=== PATIENT | male | born 1955 | race Caucasian/White ===

== ENCOUNTER 2020-03-04 19:37 | Emergency (ER) | payer OTHER, SELFPAY ==
--- NOTE | 2020-03-04 19:46 | ED.GENADULT ---
HPI - General Adult General Chief complaint: Abdominal Pain Stated complaint: abd pain Time Seen by Provider: 03/04/20 19:46 Source: patient and family Mode of arrival: ambulatory Limitations: no limitations History of Present Illness HPI narrative: 64-year-old male patient presents to the [facility] with complaints of abdominal pain that started about 1 AM last night. Patient states he had some violent vomiting last night. Patient states he also had a little bit of diarrhea. Patient denies knowing what color the vomit was. Patient states that all day today the pain is gotten worse and states that last time he ate was about 2 PM today trying to eat [place]qu[place]. Patient states he has not vomited up but just overall does not feel well. Denies any chest pain or shortness of breath. Denies any fever but does state he has some chills and is diaphoretic at this time. Related Data Home Medications Medication Instructions Recorded Confirmed No Home Medications 03/04/20 03/04/20 Allergies Allergy/AdvReac Type Severity Reaction Status Date / Time No Known Allergies Allergy Mild Verified 04/14/10 10:49 Review of Systems Review of Systems: Narrative: CONSTITUTIONAL: Denies fever, positive chills, and sweats. EYES: Denies visual changes, redness, or discharge. ENT: Denies rhinorrhea, congestion, sore throat, or otalgia. CARDIOVASCULAR: Denies chest pain, palpitations, or edema. RESPIRATORY: Denies cough or dyspnea. GASTROINTESTINAL: Positive lower abdominal pain, nausea, vomiting, and diarrhea. GENITOURINARY: Denies dysuria or hematuria. SKIN: Denies rash or itching. MUSCULOSKELETAL: Denies back pain, joint pain, or myalgia. NEUROLOGIC: Denies headache, numbness, or weakness. PSYCHIATRIC: Denies anxiety or depression. [facility] Past Medical History Medical History (Updated 03/04/20 @ 19:54 by GISSELL Marte) Borderline hypertension Kidney stones Surgical History Surgical History (Updated 03/04/20 @ 19:49 by GISSELL Marte) H/O shoulder surgery Family History Family History (Updated 10/17/16 @ 11:38 by DOCTOR UNKNOWN) Other Cerebrovascular accident Diabetes mellitus Social History Social History (Updated 03/04/20 @ 19:50 by GISSELL Marte) Smoking status: Never smoker Alcohol intake: current Alcohol use details: Patient states he drinks 4 to 5 days a week and approximately 4-5 beers a day Gender identity (if verbalized by the patient): Male Comments At the time of my signature I agree with nursing past medical history, surgical, social, and family history. There is no relevant family history pertinent to the presenting complaint. Exam Narrative: Exam Narrative: GENERAL: ill-appearing, well-nourished, patient is guarding his abdomen and does appear slightly pale and diaphoretic HEAD: Normocephalic, atraumatic. EYES: PERRLA and EOMI. ENT: Nares clear, no rhinorrhea or epistaxis. Mucous membranes moist. NECK: Supple. No lymphadenopathy CHEST: Clear to auscultation. No respiratory distress. HEART: Regular rate and rhythm. No murmur heard. Normal peripheral pulses. ABDOMEN: Patient's abdomen does look distended.. guarding and rebound tenderness, no rigid. Patient having severe pain to the left lower quadrant on palpation no pulsatilla masses. Bowel sounds present in left upper and left lower quadrants. No active bowel sounds noted to right upper or right lower. No organomegaly. Negative Alicea?s sign. No periumbicial tenderness. No Supra public tenderness or distension. Good femoral pulses bilaterally. No hernia noted. No scars or surface trauma. EXTREMITIES: Normal range of motion. No edema. SKIN: Warm, dry, no rash. NEURO: No focal deficits. Alert and oriented x3. Course Vital Signs Vital signs: Vital signs reviewed Transfer Transfered to: [facility] Transportation: Other (Private vehicle with ) Transfer rationale: Abdominal pain Accepting physician: Dr. Lutz Transfer
[2020-03-04 19:48] VITALS: BP 114/75; PULSE 94; RESP 24; TEMP 36.9; O2SAT 99
--- NOTE | 2020-03-04 19:48 | PC.NURSE ---
Peggy WATER SANDER spoke with DR Lutz and nurse report given to Janes CAMARILLO
--- NOTE | 2020-03-04 19:51 | ECG_ITS ---
Measurements Intervals [place] Rate: 65 P: 65 CA: 185 QRS: -54 QRSD: 105 T: 79 QT: 402 QTc: 420 Interpretive Statements SINUS RHYTHM INCOMPLETE RIGHT BUNDLE BRANCH BLOCK LEFT ANTERIOR FASCICULAR BLOCK BORDERLINE T WAVE ABNORMALITY- HIGH LATERAL LEADS BASELINE WANDER- II, III, AVR, AVL, AVF, V1-V6 ABNORMAL ECG Electronically Signed On 03-05-2020 7:56:38 PSYCH RN by Sacha Jones D.O.
== END 2020-03-04 19:53 | disposition short-term general hospital (02) ==
LOC: EXPTROY 19:42
PROVIDERS: Emergency Provider Nurse Practitioner Family
DX: R10.32 Left lower quadrant pain (principal); Z87.442 Personal history of urinary calculi; R03.0 Elevated blood-pressure reading, without diagnosis of hypertension; I45.2 Bifascicular block; R94.31 Abnormal electrocardiogram [ECG] [EKG]
CPT/HCPCS: 93005; 99213; G0463

== ENCOUNTER 2020-03-04 20:02 | Inpatient (IN) | payer OTHER, SELFPAY ==
--- NOTE | ~2020-03-04 | XR_ITS ---
Upper GI/small bowel series INDICATION: Small bowel obstruction TECHNIQUE: Serial plain films and fluoroscopic spot films are performed following oral demonstration of water-soluble contrast. COMPARISON: CT dated 05/05/2019 FINDINGS: Contrast was followed sequentially through the small bowel. The mucosal pattern is unremar kable. There is diffusely dilated small bowel with delayed transit of contrast through the colon. Tra nsit time to the colon is approximately 9 hours. The distal small bowel is relatively decompressed, a lthough no transition site is identified. There is a duodenal diverticulum in the right lower abdomen . IMPRESSION: 1: Small bowel obstruction.. Reviewed, dictated and finalized at location A. [employer]
--- NOTE | ~2020-03-04 | XR_ITS ---
EXAMINATION: XR abdomen obstructive series EXAM DATE: 03/07/2020 07:48 INDICATION: Follow-up on ileus versus partial small-bowel obstruction TECHNIQUE: Frontal upright projection of the upper abdomen, frontal projection of the lower abdomen f or interpretation. Comparison is made to prior examination from 03/06/2020. FINDINGS: There is small amount of contrast within the colon, with interval passage of all of the con trast in the stomach and small bowel seen on yesterday's exam. Contrast within a normal appendix. Sev eral loops of moderately distended air-filled mid abdominal small bowel, improvement compared to yest erday. There is no organomegaly. There are mild bony degenerative changes. IMPRESSION: Several loops of moderately distended mid small bowel, interval improvement. Ileus or par tial obstruction. Reviewed, dictated and finalized at location A. NIB GRINDER IMPRESSION: Several loops of moderately distended mid small bowel, interval imp rovement. Ileus or partial obstruction.
--- NOTE | ~2020-03-04 | CT_ITS ---
EXAMINATION: CT abdomen pelvis wo con DATE: 03/04/2020 21:28 INDICATION: Left upper quadrant pain. Diverticulitis. TECHNIQUE: Computed tomography (CT) of the abdomen and pelvis was performed without intravenous contr ast. The dose-length product was 594.07 mGy-cm. Automated exposure control and iterative reconstructi on technique were employed. COMPARISON: None. FINDINGS: There is atelectasis of the right middle and lower lobe. Heart size normal. No significant pleural or pericardial effusion. The liver, spleen, pancreas, adrenal glands gallbladder is present. There appears to be bowel malrotation. There is dilated small bowel with air-fluid levels the head du e to a dominant distal small bowel are relatively decompressed. Cannot exclude closed loop obstructio n. Other considerations include adynamic ileus and enteritis. There is mild mesenteric edema. Colonic diverticulosis without evidence for diverticulitis. There is atherosclerosis. No evidence for aneurysm. No hydronephrosis. IMPRESSION: 1. Dilated small bowel with air-fluid levels. The proximal and distal small bowel are decompressed, a lthough exact site of transition is not identified. These findings are suspicious for closed loop obs truction. Possible bowel malrotation. Reviewed, dictated and finalized at location A. GER AUDIT IMPRESSION: 1. Dilated small bowel with air-fluid levels. The proximal and distal small bow el are decompressed, although exact site of transition is not identified. These findings are suspicious for closed loop obstruction. Possible bowel malrotatio n.
--- NOTE | ~2020-03-04 | XR_ITS ---
EXAMINATION: XR abdomen obstructive series EXAM DATE: 03/06/2020 07:04 INDICATION: Obstruction versus ileus. TECHNIQUE: Frontal upright projection of the upper abdomen, frontal projection of the lower abdomen f or interpretation. Correlation was made with water-soluble upper GI examination from yesterday. FINDINGS: There are multiple loops of moderately distended ileum and jejunum. The stomach is also di stended with contrast, fluid. There is also contrast throughout the colon. No discrete transition poi nt identified. Scattered colonic diverticulosis. There is linear right basilar atelectasis. There ar e mild bony degenerative changes. IMPRESSION: Contrast from stomach to rectum with persistent moderately distended stomach and small joaquin wel, delayed transit time on yesterday's small bowel exam. Ileus or partial obstruction. Reviewed, dictated and finalized at location A. [employer] IMPRESSION: Contrast from stomach to rectum with persistent moderately distende d stomach and small bowel, delayed transit time on yesterday's small bowel exam . Ileus or partial obstruction.
[2020-03-04 20:07] VITALS: BP 189/89; PULSE 68; RESP 24; TEMP 36.7; O2SAT 95
[2020-03-04 20:18] LABS: Basophils Percent Auto 0.2 % (0.2-1.2); Eosinophils Percent Auto 0.3 % (0-4.4); Hematocrit 46.5 % (42.0-52.0); Hemoglobin 16.3 g/dL (14.0-18.0); Immature Granulocyte Absolute 0.06 K/mm3 (0.00-0.031); Immature Granulocyte Percent A 0.4 % (0-0.5); Lymphocytes Absolute Auto 1.67 K/mm3 (0.9-3.2); Lymphocytes Percent Auto 11.5 % (18.3-44.2); Mean Corpuscular HGB Conc 35.1 g/dl (32-36); Mean Corpuscular Hemoglobin 31.8 pg (26-34); Mean Corpuscular Volume 90.6 fl (80-100); Mean Platelet Volume 9.6 fl (7.4-10.4); Monocytes Absolute Auto 0.7 K/mm3 (0.1-0.6); Monocytes Percent Auto 4.8 % (2.6-8.5); Neutrophils Percent Auto 82.8 % (45.5-73.1); Platelet Count Result 263 k/mm3 (150-375); Red Blood Count 5.13 M/mm3 (4.6-6.20); Red Cell Distribution Width 13.2 % (11.5-14.5); White Blood Count 14.5 K/mm3 (4.5-10.0)
--- NOTE | 2020-03-04 20:22 | ED.ABDPAIN ---
HPI - Abdominal Pain General Chief Complaint: Abdominal Pain Stated Complaint: abd pain Time Seen by Provider: 03/04/20 20:04 Source: patient, family and old records reviewed Mode of arrival: ambulatory Limitations: no limitations History of Present Illness HPI narrative: 64-year-old male Presents for evaluation of lower abdominal pain which began shortly after midnight Patient notes that he was awakened by pain in his lower abdomen mainly on the left side and subsequently vomited multiple times over the next 10 to 15 minutes No more vomiting but he is continued to have pain which waxes and wanes and is tended to get worse He had one loose-reginald stool but it was dark and he is not sure whether it was melanotic or bloody or just normal He has not had any fevers No pain or burning with urination and no blood in his urine No other abdominal operations He went to urgent care and was sent here Related Data Home Medications Medication Instructions Recorded Confirmed No Home Medications 03/04/20 03/04/20 Allergies Allergy/AdvReac Type Severity Reaction Status Date / Time No Known Allergies Allergy Mild Verified 03/04/20 20:10 Review of Systems Review of Systems: All systems reviewed & are unremarkable except as noted in HPI and below Constitutional: Constitutional: Denies chills, Denies fatigue, Denies fever(s), Denies headache(s) and Denies weakness Eyes: Eyes: Reports no additional eye complaints and Denies change in vision ENT: Denies headache(s), Denies epistaxis, Denies nasal congestion and Denies sore throat Cardiovascular: Cardiovascular: Denies chest pain, Denies leg edema, Denies palpitations and Denies dyspnea Respiratory: Respiratory: Denies cough, Denies dyspnea and Denies wheezing Gastrointestinal: Gastrointestinal: Reports as per HPI and Reports no additional gastrointestinal complaints Genitourinary: Genitourinary: Denies hematuria, Denies dysuria and Denies urinary frequency Musculoskeletal: Musculoskeletal: Denies deformity, Denies arthralgias, Denies joint swelling, Denies muscle weakness and Denies numbness Integumentary/Breasts: Skin/Breast: Denies rash and Denies wounds Neurologic: Denies headache(s), Denies focal weakness, Denies numbness and Denies weakness Psychiatric: Psychiatric: Reports no additional psychiatric complaints Endocrine: Endocrine: Denies fatigue and Denies palpitations Hematologic/Lymphatic: Hematologic/Lymphatic: Denies easy bleeding and Denies easy bruising Allergic/Immunologic: Allergic/Immunologic: Denies wheezing PMFSH Past Medical History Medical History (Updated 03/04/20 @ 22:54 by Chris Chadwick MD) Borderline hypertension Kidney stones Surgical History Surgical History (Updated 03/04/20 @ 19:49 by GISSELL Marte) H/O shoulder surgery Family History Family History (Updated 10/17/16 @ 11:38 by DOCTOR UNKNOWN) Other Cerebrovascular accident Diabetes mellitus Social History Social History (Updated 03/04/20 @ 19:50 by GISSELL Marte) Smoking status: Never smoker Alcohol intake: current Gender identity (if verbalized by the patient): Male Exam Const: General: no acute distress, well developed and awake Nutritional Appearance: well nourished Orientation/consciousness: patient oriented x3 (alert) Limitations: no limitations HENMT: Head: normocephalic and atraumatic Ears: external ears normal General nose exam: No nasal discharge present and no epistaxis Face and sinus: face symmetric Eyes: Conjunctivae: conjunctivae normal Sclera: sclerae normal EOM: EOMs intact bilaterally Neck: Neck: normal visual inspection, supple and no JVD Chest: Chest palpation & inspection: deferred Resp: Effort & Inspection: normal respiratory effort Auscultation: clear to auscultation bilaterally, no rales, no rhonchi, no wheezes and other (BS =) Cardio: Rate: regular rate Rhythm: regular rhythm Heart sounds: no ga
[2020-03-04] MEDS: KETOROLAC 15 MG/ML VIAL (*BKC) IV PUSH (20:26)
[2020-03-04 20:29] LABS: Alanine Aminotransferase 39 U/L (4-50); Albumin Level 4.2 g/dL (3.5-5.1); Alkaline Phosphatase 97 U/L (38-126); Anion Gap 9 mmol/L (8-16); Aspartate Amino Transferase 41 U/L (17-59); Bilirubin,Total 1.5 mg/dL (0.2-1.3); Blood Urea Nitrogen 16 mg/dL (9-20); Calcium 9.1 mg/dL (8.4-10.2); Carbon Dioxide 24 mmol/L (22-30); Chloride 101 mmol/L (98-107); Estimated CRCL calculation 70 ml/min; Estimated Glomerular Filt Rate > 60; Glucose 164 mg/dL (75-110); Lipase 37 U/L (23-300); Potassium 3.7 mmol/L (3.4-5.0); Sodium 134 mmol/L (137-145)
[2020-03-04 20:51] LABS: Add Urine Microscopic? YES; Appearance Urine Clear (Clear); Bilirubin Urine Negative (Negative); Blood Urine Negative (Negative); Color Urine Yellow (Yellow); Glucose Urine UA Negative (Negative); Ketones Urine Trace mg/dL (Negative); Leukocyte Esterase Ur Negative LEU/UL (Negative); Mucus Urine Rare /lpf; Nitrate Urine Negative (Negative); Protein Urine 1+ mg/dL (Negative); Specific Grav Ur 1.025 (1.001-1.035); Squamous Epithelial Cell Urine Few /hpf (Few)
[2020-03-04 22:39] VITALS: BP 137/89; PULSE 88; RESP 16; O2SAT 98
[2020-03-04] MEDS: LACTATED RINGERS 1,000 ML 150 ML IV CONT (23:29)
--- NOTE | 2020-03-04 23:30 | ADMGEN ---
This patient, Willis Davis, was admitted to Medical Room 251-01. Patient/family oriented to hospital policies and general routines including ID bracelet, bed and alarms, visiting hours, pain management, procedures, bathroom and other care routines, personal items, smoking policy, room service/diet, and visiting hours. Information on how to activate the Rapid Response Team has been discussed. Patient/Family are encouraged to report perceived risks to care and to ask questions if they do not understand what they are told or what they should do.
[2020-03-04 23:37] VITALS: BP 141/81; PULSE 67; RESP 18; TEMP 36.6; O2SAT 97; BMI 26.2
[2020-03-04 23:39] VITALS: BP 142/101; PULSE 88; RESP 16; TEMP 36.7; O2SAT 98
[2020-03-04 23:41] VITALS: BP 142/101; PULSE 88; RESP 16; TEMP 36.7; O2SAT 98
--- NOTE | 2020-03-04 23:41 | PM.IMHP ---
H&P: HPI History of Present Illness Date/Time: 03/04/20 23:41 Chief Complaint: Abdominal pain Narrative: This is a 64 year old male with known chronic HTN and Hyperlipidemia who doesn't take any home medications and presented to the hospital with a complaint of generalized abdominal discomfort that woke him from sleep this morning around 1 am. He ate a Big Mac around 7 pm and around 1 am he woke up feeling nauseated with diffuse abdominal pain. He moved several times and had one loose stool. Today the patient continued to have abdominal pain but did eat a chicken pot pie and was able to keep that down. He denies any significant abdominal distention, fevers, chills, cough, shortness of breath, chest pain, dysuria, hematuria, or rectal bleeding. He has no previous history of bowel obstructions or abdominal surgeries. Tonight in the ER CT abd/pelvis demonstrated dilated small bowel with air-fluid levels. The proximal and distal small bowel are decompressed, although exact site of transition is not identified. These findings are suspicious for closed loop obstruction. Possible bowel malrotation. General Surgery has been consulted by ER provider. Review of Systems Review of Systems: All systems reviewed & are unremarkable except as noted in HPI and below PMFSH Past Medical History Medical History Borderline hypertension H/O: HTN (hypertension) Hyperlipidemia Kidney stones Surgical History Surgical History H/O shoulder surgery Family History Family History Mother Cerebrovascular accident Diabetes mellitus Social History Social History Smoking status: Never smoker Alcohol intake: current Drinks per week: 12 Substance use: never Gender identity (if verbalized by the patient): Male Spiritual care concerns: No Meds Home Medications and Allergies Home Medications Medication Instructions Recorded Confirmed Type amlodipine 5 mg PO DAILY 03/04/20 03/04/20 History rosuvastatin 10 mg PO DAILY 03/04/20 03/04/20 History Allergies Allergy/AdvReac Type Severity Reaction Status Date / Time No Known Allergies Allergy Mild Verified 03/04/20 20:10 Vital Signs Vital Signs - 24 hr 03/04/20 20:07 03/04/20 22:39 03/04/20 23:37 Temperature 36.7 C 36.6 C Pulse Rate 68 88 67 Respiratory Rate 24 H 16 18 Blood Pressure 189/89 H 137/89 141/81 H Pulse Oximetry 95 98 97 03/04/20 23:39 Temperature 36.7 C Pulse Rate 88 Respiratory Rate 16 Blood Pressure 142/101 H Pulse Oximetry 98 Exam Const: General: cooperative, no acute distress, alert and awake Nutritional Appearance: well nourished Orientation/consciousness: patient oriented x3 HENMT: Head: normal to inspection General nose exam: Normal external nose present Face and sinus: normal facial exam Mouth: Yes Normal oral and palatal mucosa present and Yes oropharynx normal Eyes: Pupils: Equal, round and reactive pupils present EOM: EOMs intact bilaterally Neck: Neck: supple and no JVD Thyroid: thyroid normal Lymphatic: lymphadenopathy not noted Resp: Effort & Inspection: normal respiratory effort Auscultation: clear to auscultation bilaterally Cardio: Rate: regular rate Rhythm: regular rhythm Heart sounds: no murmurs GI: Inspection: normal to inspection and non-distended GI Palp: Yes abdominal tenderness (mild diffuse tenderness w/ palpation+ ), No Guarding due to palpation present (GI) and No Rigid due to palpation Auscultation: Hypoactive bowel sounds present Rectal Exam: deferred Skin: General skin exam: normal color and no rashes or lesions noted Neuro: General: patient oriented x3 Cranial nerves: Yes CN's II-XII intact bilaterally and Yes Equal, round and reactive pupils present Speech: normal speech Motor ex
[2020-03-05] MEDS: LACTATED RINGERS 1,000 ML 150 ML IV CONT ×3 (05:56→20:04)
[2020-03-05 06:00] VITALS: BP 119/72; PULSE 63; RESP 16; TEMP 36.2; O2SAT 99
[2020-03-05 06:44] LABS: Eosinophils Absolute Auto 0.1 K/mm3 (0-0.3); Hematocrit 41.7 % (42.0-52.0); Hemoglobin 14.2 g/dL (14.0-18.0); Immature Granulocyte Absolute 0.02 K/mm3 (0.00-0.031); Immature Granulocyte Percent A 0.2 % (0-0.5); Lymphocytes Absolute Auto 1.73 K/mm3 (0.9-3.2); Lymphocytes Percent Auto 19.2 % (18.3-44.2); Mean Corpuscular HGB Conc 34.1 g/dl (32-36); Mean Corpuscular Hemoglobin 30.9 pg (26-34); Mean Corpuscular Volume 90.8 fl (80-100); Mean Platelet Volume 10.2 fl (7.4-10.4); Monocytes Absolute Auto 0.5 K/mm3 (0.1-0.6); Neutrophils Absolute Auto 6.7 K/mm3 (1.3-6.7); Neutrophils Percent Auto 74.6 % (45.5-73.1); Platelet Count Result 232 k/mm3 (150-375); Red Blood Count 4.59 M/mm3 (4.6-6.20)
[2020-03-05 07:01] LABS: Alanine Aminotransferase 29 U/L (4-50); Albumin Level 3.4 g/dL (3.5-5.1); Alkaline Phosphatase 64 U/L (38-126); Anion Gap 2 mmol/L (8-16); Aspartate Amino Transferase 27 U/L (17-59); Bilirubin,Total 1.2 mg/dL (0.2-1.3); Blood Urea Nitrogen 17 mg/dL (9-20); Calcium 8.3 mg/dL (8.4-10.2); Carbon Dioxide 29 mmol/L (22-30); Chloride 103 mmol/L (98-107); Estimated CRCL calculation 77 ml/min; Estimated Glomerular Filt Rate > 60; Glucose 103 mg/dL (75-110); Potassium 3.8 mmol/L (3.4-5.0); Sodium 134 mmol/L (137-145)
[2020-03-05 07:56] LABS: Hematocrit 41.2 % (42.0-52.0); Hemoglobin 14.3 g/dL (14.0-18.0); Mean Corpuscular HGB Conc 34.7 g/dl (32-36); Mean Corpuscular Hemoglobin 31.8 pg (26-34); Mean Corpuscular Volume 91.8 fl (80-100); Mean Platelet Volume 9.6 fl (7.4-10.4); Platelet Count Result 220 k/mm3 (150-375); Red Blood Count 4.49 M/mm3 (4.6-6.20); Red Cell Distribution Width 13.2 % (11.5-14.5); White Blood Count 8.9 K/mm3 (4.5-10.0)
[2020-03-05 08:12] LABS: Anion Gap 4 mmol/L (8-16); Blood Urea Nitrogen 16 mg/dL (9-20); Calcium 8.1 mg/dL (8.4-10.2); Carbon Dioxide 29 mmol/L (22-30); Chloride 102 mmol/L (98-107); Estimated CRCL calculation 70 ml/min; Estimated Glomerular Filt Rate > 60; Glucose 107 mg/dL (75-110); Potassium 3.8 mmol/L (3.4-5.0); Sodium 135 mmol/L (137-145)
[2020-03-05] MEDS: FAMOTIDINE 20 MG/2 ML VIAL IV PUSH ×2 (10:25→20:04)
--- NOTE | 2020-03-05 10:35 | PM.CNGS ---
Assessment and Plan Assessment and plan (1) Small bowel obstruction: Code(s): K56.609 - Unspecified intestinal obstruction, unspecified as to partial versus complete obstruction Status: Acute Assessment and Plan: CT scan of the abdomen and pelvis suggests a possibility of a closed-loop small bowel obstruction with findings of dilated small bowel with air-fluid levels and no exact transition point identified. The patient has nearly complete resolution of his symptoms after Toradol given in the ER. He has flatus today and had diarrhea prior to admission. His abdominal exam is unremarkable. I discussed the patient's case and plan of care with Dr. Barrera. After evaluating the patient, his clinical picture does not correlate with a small bowel obstruction. This seems more likely to be gastroenteritis. We will obtain a Gastrografin small bowel follow-through this morning to further assess for a small bowel obstruction. If the contrast reaches the colon, then we would recommend advancing his diet and treating him for gastroenteritis. We will keep him NPO and on IV fluids while awaiting the results of the gastrografin study. Thank you for allowing us to see the patient in consultation and we will continue to follow along with you. (2) Leukocytosis: Qualifiers: Leukocytosis type: unspecified Qualified Code(s): D72.829 - Elevated white blood cell count, unspecified Code(s): D72.829 - Elevated white blood cell count, unspecified Status: Acute Assessment and Plan: On admission his WBC count was 14,500 and has come down to normal today. Monitor labs. (3) H/O: HTN (hypertension): Code(s): Z86.79 - Personal history of other diseases of the circulatory system Status: Chronic Assessment and Plan: Stable. Management per Hospitalist. (4) Hyperlipidemia: Qualifiers: Hyperlipidemia type: unspecified Qualified Code(s): E78.5 - Hyperlipidemia, unspecified Code(s): E78.5 - Hyperlipidemia, unspecified Status: Chronic History of Present Illness Consult details Consult date: 03/05/20 Reason for consult: other (Small bowel obstruction) Requesting physician: Chris Chadwick MD Narrative: This is a 64-year-old male with a history of hypertension and hyperlipidemia, who presented to the emergency department with complaints of abdominal pain, nausea, and vomiting. The patient reports that 2 days ago he had put his dog to sleep and had not eaten throughout the day. He then went to a bar and had 3 alcoholic drinks. Then, for dinner he did eat a Big Mac from [employer] and half of a subway sandwich. He went to bed that night feeling poorly, but no specific complaints. He reports then waking up around 1:00 a.m. with more severe symptoms of cramping mid upper abdominal pain with nausea and multiple episodes of vomiting. Denies any hematemesis. He also had a small formed bowel movement and then a large amount of diarrhea. His abdominal pain continued into the next day, and he eventually presented to the emergency department yesterday evening for evaluation. CT scan of the abdomen and pelvis in the ER showed dilated small bowel with air-fluid levels with the proximal and distal small bowel decompressed and no exact transition point identified, suspicious for closed loop obstruction. Other considerations include adynamic ileus and enteritis. The patient was given IV Toradol and had near complete resolution of his abdominal pain. He was admitted to the hospitalist service and our service was consulted for the possible small-bowel obstruction. The patient was made NPO and started on IV fluids. He is now being seen on the medical floor. The patient reports only very mild cramping abdominal pain in the mid upper abdomen. He denies any further nausea or vomiting. Reports his bloating has improved significantly. Reports flatus today. No other complaints at this time. Denies any history of a
--- NOTE | 2020-03-05 11:22 | PM.PNGS ---
Progress Note: A&P Assessment and Plan (1) Epigastric pain: Code(s): R10.13 - Epigastric pain Status: Acute Assessment and Plan: improved significantly after single dose of 15 mg Toradol in the ER. No vomiting since then. Still some mild pain but much improved and patient having bowel movements. Clinically appears to be more of a gastroenteritis but will get upper GI small-bowel follow-through today to evaluate for obstruction. If no obstruction, patient can eat and possibly go home later today. If signs of obstruction or ileus consider NG tube and continue to stay in the hospital. Subjective Subjective Date/Time Seen: 03/05/20 11:22 Patient reports: feels better, pain is less, flatus, bowel movement and afebrile Interval history: 64-year-old man started having some epigastric abdominal pain after eating big Mac as well as part of the subway sandwich. He had had a few rum and cokes prior to this. Awakened 1:00 a.m. yesterday morning with severe pain and diarrhea. Vomited. T[place]esta better but pain did not go away. Able to eat a pot pie yesterday but pain got worse again and he came to the emergency room. After a single dose of 15 mg Toradol, he felt entirely better. He was put in the hospital to be observed due to CT scan report suggesting malrotation, possible closed loop bowel obstruction, or enteritis. This morning, he has some mild epigastric discomfort but no nausea or vomiting. The pain is very slight and no where near as severe as it had been yesterday or last night. Would like to go home today if possible. Did have a bowel movement last night as well. Review of Systems Review of Systems: All systems reviewed & are unremarkable except as noted in HPI and below Constitutional: Constitutional: Denies body ache(s), Denies chills, Denies fever(s), Denies headache(s) and Reports increased appetite Cardiovascular: Cardiovascular: Denies chest pain and Denies dyspnea Respiratory: Respiratory: Denies cough and Denies dyspnea Gastrointestinal: Gastrointestinal: Reports as per HPI, Reports abdominal pain, Reports diarrhea and Reports vomiting Neurologic: Denies confusion and Denies headache(s) Exam Const: General: comfortable and no acute distress; No confusion Orientation/consciousness: patient oriented x3 and No confusion Resp: Effort & Inspection: normal respiratory effort Auscultation: clear to auscultation bilaterally Cardio: Rate: regular rate Rhythm: regular rhythm GI: Inspection: normal to inspection, non-distended, no scars and no striae GI Palp: Yes Soft to palpation, Yes Tenderness to palpation present (GI) ( Mild epigastric and hypogastric tenderness), No Guarding due to palpation present (GI), No Hepatosplenomegaly present, No Hernia present, No Palpable mass present and No Rebound tenderness present Auscultation: normal bowel sounds Neuro: General: patient oriented x3, no focal motor deficits and No confusion Extrem: General: no calf tenderness and no edema Psych: Affect: normal affect Insight: Good insight present (Psych) Judgement: Good judgement present (Psych) Objective Data Vital Signs Vital Signs: Vital Signs - 24 hr 03/04/20 20:07 03/04/20 22:39 03/04/20 23:37 Temperature 36.7 C 36.6 C Pulse Rate 68 88 67 Respiratory Rate 24 H 16 18 Blood Pressure 189/89 H 137/89 141/81 H Pulse Oximetry 95 98 97 03/04/20 23:39 03/04/20 23:41 03/05/20 06:00 Temperature 36.7 C 36.7 C 36.2 C L Pulse Rate 88 88 63 Respiratory Rate 16 16 16 Blood Pressure 142/101 H 142/101 H 119/72 Pulse Oximetry 98 98 99 Intake/Output Intake/Output: Intake & Output 03/02/20 03/03/20 03/04/20 03/05/20 23:59 23:59 23:59 23:59 Intake Total 1000 Output Total 0 Balance 1000 Meds/Results Medications: Active Medications Generic Name Dose Route Start Last Admin Trade Name Freq PRN Reason Stop Dose Admin Famotidine 20 mg 03/05/20 09:00 03/05/20 10:25 Famotidine 20 M
[2020-03-05 14:00] VITALS: BP 147/97; PULSE 74; RESP 16; TEMP 36.5; O2SAT 98
[2020-03-05] MEDS: MORPHINE SULFATE (*CRX) 2 MG/ML INJ IV PUSH ×2 (14:06→20:02)
[2020-03-05] MEDS: ONDANSETRON INJ 4 MG/2 ML VIAL IV PUSH ×2 (14:07→22:30)
--- NOTE | 2020-03-05 14:53 | PM.IMPN ---
Progress Note: A&P Assessment and Plan (1) Small bowel obstruction: Code(s): K56.609 - Unspecified intestinal obstruction, unspecified as to partial versus complete obstruction Status: Acute Assessment and Plan: Patient has been placed in observation status. NPO overnight. Continue IV hydration. Pain control as needed. Antiemetics as needed. General surgery has been consulted by ER provider. Evaluate for small-bowel follow-through in a.m. Continue general surgery recommendations. (2) Abnormal glucose: Code(s): R73.09 - Other abnormal glucose Status: Acute Assessment and Plan: Rule out undiagnosed diabetes mellitus. Check hemoglobin A1c in a.m. (3) Leukocytosis: Qualifiers: Leukocytosis type: unspecified Qualified Code(s): D72.829 - Elevated white blood cell count, unspecified Code(s): D72.829 - Elevated white blood cell count, unspecified Status: Acute Assessment and Plan: Likely secondary to bowel obstruction. Monitor CBCD. (4) H/O: HTN (hypertension): Code(s): Z86.79 - Personal history of other diseases of the circulatory system Status: Chronic Assessment and Plan: Monitor blood pressure. P.r.n. IV hydralazine with parameters as needed. (5) Hyperlipidemia: Qualifiers: Hyperlipidemia type: unspecified Qualified Code(s): E78.5 - Hyperlipidemia, unspecified Code(s): E78.5 - Hyperlipidemia, unspecified Status: Chronic Assessment and Plan: Resume home statin therapy when possible. Additional Plan Will continue current plan of care and treatment. Will increase diet if x-ray is negative. Possible discharge. Tomorrow. Subjective Date/time seen: 03/05/20 14:53 Interval history: Patient was seen during the morning rounds today. Patient has mild abdominal pain otherwise feeling better. No shortness of breath or chest pain. Decrease nausea. Mood stable. Review of Systems Review of Systems: All systems reviewed & are unremarkable except as noted in HPI and below Exam Const: General: cooperative, no acute distress, alert and awake Nutritional Appearance: well nourished Orientation/consciousness: patient oriented x3 HENMT: Head: normal to inspection General nose exam: Normal external nose present Face and sinus: normal facial exam Mouth: Yes Normal oral and palatal mucosa present and Yes oropharynx normal Eyes: Pupils: Equal, round and reactive pupils present EOM: EOMs intact bilaterally Neck: Neck: supple and no JVD Thyroid: thyroid normal Lymphatic: lymphadenopathy not noted Resp: Effort & Inspection: normal respiratory effort Auscultation: clear to auscultation bilaterally Cardio: Rate: regular rate Rhythm: regular rhythm Heart sounds: no murmurs GI: Inspection: normal to inspection and non-distended Auscultation: Hypoactive bowel sounds present Rectal Exam: deferred Skin: General skin exam: normal color and no rashes or lesions noted Neuro: General: patient oriented x3 Cranial nerves: Yes CN's II-XII intact bilaterally and Yes Equal, round and reactive pupils present Speech: normal speech Motor exam (neuro): 5/5 motor strength present throughout Sensory Exam: normal sensation Extrem: General: normal to inspection and no edema Psych: Mental Status: mental status grossly normal Affect: normal affect Objective Data Vital Signs Vital Signs: Vital Signs - 24 hr 03/04/20 20:07 03/04/20 22:39 03/04/20 23:37 Temperature 36.7 C 36.6 C Pulse Rate 68 88 67 Respiratory Rate 24 H 16 18 Blood Pressure 189/89 H 137/89 141/81 H Pulse Oximetry 95 98 97 03/04/20 23:39 03/04/20 23:41 03/05/20 06:00 Temperature 36.7 C 36.7 C 36.2 C L Pulse Rate 88 88 63 Respiratory Rate 16 16 16 Blood Pressure 142/101 H 142/101 H 119/72 Pulse Oximetry 98 98 99 03/05/20 14:00 Temperature 36.5 C Pulse Rate 74 Respiratory Rate 16 Blood Pressure 147/97 H Pulse Oximet
[2020-03-05] MEDS: METOCLOPRAMIDE HCL INJ 10 MG/2 ML VIAL 5 MG IV PUSH (15:16)
[2020-03-05 21:09] VITALS: BP 166/86; PULSE 86; RESP 18; TEMP 37.2; O2SAT 95
[2020-03-06] MEDS: LACTATED RINGERS 1,000 ML 150 ML IV CONT ×4 (02:10→21:48)
--- NOTE | 2020-03-06 04:12 | PC.NURSE ---
Pt had large clear/yellow emesis, >300ml, pt had spilled a large amount from emesis bag. Pt made NPO for the rest of the night. Pt has been told to call nurse if he feels nausea becoming more severe and informed that he may require an NG tube.
[2020-03-06 05:18] VITALS: BP 132/80; PULSE 89; RESP 18; TEMP 37.1; O2SAT 98
[2020-03-06 05:43] LABS: Basophils Percent Auto 0.2 % (0.2-1.2); Eosinophils Percent Auto 0.4 % (0-4.4); Hematocrit 45.8 % (42.0-52.0); Hemoglobin 15.8 g/dL (14.0-18.0); Immature Granulocyte Absolute 0.04 K/mm3 (0.00-0.031); Immature Granulocyte Percent A 0.4 % (0-0.5); Lymphocytes Percent Auto 9.5 % (18.3-44.2); Mean Corpuscular HGB Conc 34.5 g/dl (32-36); Mean Corpuscular Hemoglobin 31.6 pg (26-34); Mean Corpuscular Volume 91.6 fl (80-100); Mean Platelet Volume 9.7 fl (7.4-10.4); Monocytes Absolute Auto 0.5 K/mm3 (0.1-0.6); Monocytes Percent Auto 5.3 % (2.6-8.5); Neutrophils Percent Auto 84.2 % (45.5-73.1); Platelet Count Result 263 k/mm3 (150-375); Red Cell Distribution Width 12.9 % (11.5-14.5); White Blood Count 9.5 K/mm3 (4.5-10.0)
[2020-03-06 06:02] LABS: Anion Gap 5 mmol/L (8-16); Blood Urea Nitrogen 16 mg/dL (9-20); Calcium 8.6 mg/dL (8.4-10.2); Carbon Dioxide 30 mmol/L (22-30); Chloride 101 mmol/L (98-107); Estimated CRCL calculation 70 ml/min; Estimated Glomerular Filt Rate > 60; Glucose 128 mg/dL (75-110); Potassium 4.2 mmol/L (3.4-5.0); Sodium 136 mmol/L (137-145)
[2020-03-06 06:04] LABS: Lactic Acid Reflex 1.1 mmol/L (0.7-2.1)
--- NOTE | 2020-03-06 08:13 | PM.IMPN ---
Progress Note: A&P Assessment and Plan (1) Small bowel obstruction: Code(s): K56.609 - Unspecified intestinal obstruction, unspecified as to partial versus complete obstruction Status: Acute Assessment and Plan: Patient has been placed in observation status. NPO overnight. Continue IV hydration. Pain control as needed. Antiemetics as needed. General surgery has been consulted by ER provider. Evaluate for small-bowel follow-through in a.m. Continue general surgery recommendations. (2) Abnormal glucose: Code(s): R73.09 - Other abnormal glucose Status: Acute Assessment and Plan: Rule out undiagnosed diabetes mellitus. Check hemoglobin A1c in a.m. (3) Leukocytosis: Qualifiers: Leukocytosis type: unspecified Qualified Code(s): D72.829 - Elevated white blood cell count, unspecified Code(s): D72.829 - Elevated white blood cell count, unspecified Status: Acute Assessment and Plan: Likely secondary to bowel obstruction. Monitor CBCD. (4) H/O: HTN (hypertension): Code(s): Z86.79 - Personal history of other diseases of the circulatory system Status: Chronic Assessment and Plan: Monitor blood pressure. P.r.n. IV hydralazine with parameters as needed. (5) Hyperlipidemia: Qualifiers: Hyperlipidemia type: unspecified Qualified Code(s): E78.5 - Hyperlipidemia, unspecified Code(s): E78.5 - Hyperlipidemia, unspecified Status: Chronic Assessment and Plan: Resume home statin therapy when possible. Additional Plan Will continue current plan of care and treatment. Will increase diet if x-ray is negative. Will discuss with surgery about the discharge plan. Subjective Date/time seen: 03/06/20 08:13 Interval history: Patient was seen during the morning rounds today. Patient has mild abdominal pain otherwise feeling better. No shortness of breath or chest pain. Decrease nausea. Mood stable. Decrease nausea. Had a bowel movement. Review of Systems Review of Systems: All systems reviewed & are unremarkable except as noted in HPI and below Exam Const: General: cooperative, no acute distress, alert and awake Nutritional Appearance: well nourished Orientation/consciousness: patient oriented x3 HENMT: Head: normal to inspection General nose exam: Normal external nose present Face and sinus: normal facial exam Mouth: Yes Normal oral and palatal mucosa present and Yes oropharynx normal Eyes: Pupils: Equal, round and reactive pupils present EOM: EOMs intact bilaterally Neck: Neck: supple and no JVD Thyroid: thyroid normal Lymphatic: lymphadenopathy not noted Resp: Effort & Inspection: normal respiratory effort Auscultation: clear to auscultation bilaterally Cardio: Rate: regular rate Rhythm: regular rhythm Heart sounds: no murmurs GI: Inspection: normal to inspection and non-distended Auscultation: Hypoactive bowel sounds present Rectal Exam: deferred Skin: General skin exam: normal color and no rashes or lesions noted Neuro: General: patient oriented x3 Cranial nerves: Yes CN's II-XII intact bilaterally and Yes Equal, round and reactive pupils present Speech: normal speech Motor exam (neuro): 5/5 motor strength present throughout Sensory Exam: normal sensation Extrem: General: normal to inspection and no edema Psych: Mental Status: mental status grossly normal Affect: normal affect Objective Data Vital Signs Vital Signs: Vital Signs - 24 hr 03/05/20 14:00 03/05/20 21:09 03/06/20 05:18 Temperature 36.5 C 37.2 C 37.1 C Pulse Rate 74 86 89 Respiratory Rate 16 18 18 Blood Pressure 147/97 H 166/86 H 132/80 Pulse Oximetry 98 95 98 Intake/Output Intake/Output: Intake & Output 03/03/20 03/04/20 03/05/20 03/06/20 23:59 23:59 23:59 23:59 Intake Total 3100 1100 Output Total 0 250 Balance 3100 850 Meds/Results Medications: Active Medications Generic Nam
[2020-03-06] MEDS: FAMOTIDINE 20 MG/2 ML VIAL IV PUSH ×2 (08:29→20:45)
[2020-03-06 08:32] VITALS: O2SAT 97
--- NOTE | 2020-03-06 11:54 | PM.PNGS ---
Progress Note: A&P Assessment and Plan (1) Ileus, unspecified: Onset Date: ~03/04/20 Code(s): K56.7 - Ileus, unspecified Status: Acute Assessment and Plan: x-ray studies are pointing toward in gastroenteritis or ileus. He seems to be improving somewhat. Will allow the patient to try clear liquids today and gradually increase these over the next 24 hours. Repeat abdominal films tomorrow morning to see if this is improving. Explain to him that the loose stools probably are a result of either the resent resolution of his ileus or the side effect of the dye from his small-bowel follow-through. (2) H/O: HTN (hypertension): Code(s): Z86.79 - Personal history of other diseases of the circulatory system Status: Chronic (3) Hyperlipidemia: Qualifiers: Hyperlipidemia type: unspecified Qualified Code(s): E78.5 - Hyperlipidemia, unspecified Code(s): E78.5 - Hyperlipidemia, unspecified Status: Chronic (4) Abnormal glucose: Code(s): R73.09 - Other abnormal glucose Status: Acute Additional Plan For now will increase diet to clear liquids and hold to that until tomorrow morning when I cm. If still without pain and x-rays improved tomorrow morning will consider gradually increasing in diet and perhaps discharge in the afternoon tomorrow. Would continue to follow labs watch for changes and the a leukocytosis or electrolytes. May be able to cut back on his IV fluids later today if he is tolerating clear liquids. Subjective Subjective Date/Time Seen: 03/06/20 11:54 Patient lying in bed when I entered the room. States he feels significantly better. No nausea this morning. Last time he took pain medication for abdominal pain was sometime last evening. He states that he vomited twice last evening but none since that time. Now this morning he is having frequent loose stools as often as every 1 minutes. I explained to him the results of his abdominal x-ray from this morning showing still some dye even in his stomach. There is however not any complete bowel obstruction. Review of Systems Constitutional: Constitutional: Reports no additional constitutional complaints ENT: Reports other (Mucous Membranes moist.) Cardiovascular: Cardiovascular: Denies dyspnea Respiratory: Respiratory: Denies pain on inspiration and Denies dyspnea Gastrointestinal: Gastrointestinal: Reports as per HPI, Denies abdominal pain and Reports diarrhea ( Frequent loose stools with some solid chunks) Comments: no significant nausea today. Patient is interested in trying more liquids. Musculoskeletal: Musculoskeletal: Reports other (No calf swelling or edema) Integumentary/Breasts: Skin/Breast: Reports system reviewed and no additional complaints, except as docu Exam Const: General: cooperative, no acute distress, alert and awake Orientation/consciousness: patient oriented x3 HENMT: Mouth: Yes moist mucous membranes Neck: Neck: normal visual inspection Chest: Chest palpation & inspection: normal inspection of the chest Resp: Effort & Inspection: normal respiratory effort Auscultation: clear to auscultation bilaterally Cardio: Jugular venous distension: no JVD Rate: regular rate Rhythm: regular rhythm Heart sounds: no murmurs GI: Inspection: normal to inspection Percussion: Yes normal to percussion Auscultation: Hypoactive bowel sounds present ( Slightly more active than why listed yesterday.) Rectal Exam: deferred Other: To palpation lower abdomen is soft. There may be still some fullness in the left upper quadrant to palpation but he is not tender there. Neuro: General: patient oriented x3 and moves all extremities Speech: normal speech Extrem: General: normal exam except as noted Psych: Mental Status: mental status grossly normal Speech and movement: Normal speech and movement present Affect: normal affect Thought content: Yes Normal thought content present Obj
[2020-03-06 14:00] VITALS: BP 140/78; PULSE 66; RESP 18; TEMP 37.1; O2SAT 96
[2020-03-06] MEDS: ACETAMINOPHEN 325 MG TABLET 650 MG PO (18:20)
[2020-03-06 20:00] VITALS: BP 140/86; PULSE 82; RESP 20; TEMP 36.6; O2SAT 96
[2020-03-07] MEDS: LACTATED RINGERS 1,000 ML 150 ML IV CONT (04:12)
[2020-03-07 06:00] VITALS: BP 132/78; PULSE 62; RESP 18; TEMP 36.3; O2SAT 94
[2020-03-07 06:27] LABS: Basophils Percent Auto 0.3 % (0.2-1.2); Eosinophils Absolute Auto 0.2 K/mm3 (0-0.3); Eosinophils Percent Auto 3.7 % (0-4.4); Hematocrit 40.6 % (42.0-52.0); Hemoglobin 13.9 g/dL (14.0-18.0); Immature Granulocyte Absolute 0.02 K/mm3 (0.00-0.031); Immature Granulocyte Percent A 0.3 % (0-0.5); Lymphocytes Percent Auto 24.8 % (18.3-44.2); Mean Corpuscular HGB Conc 34.2 g/dl (32-36); Mean Corpuscular Volume 90.6 fl (80-100); Mean Platelet Volume 9.5 fl (7.4-10.4); Monocytes Absolute Auto 0.4 K/mm3 (0.1-0.6); Monocytes Percent Auto 6.3 % (2.6-8.5); Neutrophils Absolute Auto 4.2 K/mm3 (1.3-6.7); Neutrophils Percent Auto 64.6 % (45.5-73.1); Platelet Count Result 223 k/mm3 (150-375); Red Blood Count 4.48 M/mm3 (4.6-6.20); Red Cell Distribution Width 12.6 % (11.5-14.5); White Blood Count 6.5 K/mm3 (4.5-10.0)
[2020-03-07 06:46] LABS: Anion Gap 7 mmol/L (8-16); Blood Urea Nitrogen 11 mg/dL (9-20); Carbon Dioxide 27 mmol/L (22-30); Chloride 102 mmol/L (98-107); Estimated CRCL calculation 77 ml/min; Estimated Glomerular Filt Rate > 60; Glucose 87 mg/dL (75-110); Potassium 3.5 mmol/L (3.4-5.0); Sodium 136 mmol/L (137-145)
[2020-03-07] MEDS: FAMOTIDINE 20 MG/2 ML VIAL IV PUSH (08:05)
--- NOTE | 2020-03-07 10:21 | PM.IMPN ---
Progress Note: A&P Assessment and Plan (1) Small bowel obstruction: Code(s): K56.609 - Unspecified intestinal obstruction, unspecified as to partial versus complete obstruction Status: Ruled-out Assessment and Plan: Patient has been placed in observation status. NPO overnight. Continue IV hydration. Pain control as needed. Antiemetics as needed. General surgery has been consulted by ER provider. Evaluate for small-bowel follow-through in a.m. Continue general surgery recommendations. (2) Abnormal glucose: Code(s): R73.09 - Other abnormal glucose Status: Acute Assessment and Plan: Rule out undiagnosed diabetes mellitus. Check hemoglobin A1c in a.m. (3) Leukocytosis: Qualifiers: Leukocytosis type: unspecified Qualified Code(s): D72.829 - Elevated white blood cell count, unspecified Code(s): D72.829 - Elevated white blood cell count, unspecified Status: Acute Assessment and Plan: Likely secondary to bowel obstruction. Monitor CBCD. (4) H/O: HTN (hypertension): Code(s): Z86.79 - Personal history of other diseases of the circulatory system Status: Chronic Assessment and Plan: Monitor blood pressure. P.r.n. IV hydralazine with parameters as needed. (5) Hyperlipidemia: Qualifiers: Hyperlipidemia type: unspecified Qualified Code(s): E78.5 - Hyperlipidemia, unspecified Code(s): E78.5 - Hyperlipidemia, unspecified Status: Chronic Assessment and Plan: Resume home statin therapy when possible. Additional Plan Will continue current plan of care and treatment. This morning x-ray showed this patient still have dilated small bowel and ileus. Plan is to repeat the x-ray tomorrow and continue clear diet at present time. Subjective Date/time seen: 03/07/20 10:21 Interval history: Patient was seen during the morning rounds today. Patient has mild abdominal pain otherwise feeling better. No shortness of breath or chest pain. Decrease nausea. Mood stable. Decrease nausea. Had a bowel movement. No new complaints Review of Systems Review of Systems: All systems reviewed & are unremarkable except as noted in HPI and below Exam Const: General: cooperative, no acute distress, alert and awake Nutritional Appearance: well nourished Orientation/consciousness: patient oriented x3 HENMT: Head: normal to inspection General nose exam: Normal external nose present Face and sinus: normal facial exam Mouth: Yes Normal oral and palatal mucosa present and Yes oropharynx normal Eyes: Pupils: Equal, round and reactive pupils present EOM: EOMs intact bilaterally Neck: Neck: supple and no JVD Thyroid: thyroid normal Lymphatic: lymphadenopathy not noted Resp: Effort & Inspection: normal respiratory effort Auscultation: clear to auscultation bilaterally Cardio: Rate: regular rate Rhythm: regular rhythm Heart sounds: no murmurs GI: Inspection: normal to inspection and non-distended Auscultation: Hypoactive bowel sounds present Rectal Exam: deferred Skin: General skin exam: normal color and no rashes or lesions noted Neuro: General: patient oriented x3 Cranial nerves: Yes CN's II-XII intact bilaterally and Yes Equal, round and reactive pupils present Speech: normal speech Motor exam (neuro): 5/5 motor strength present throughout Sensory Exam: normal sensation Extrem: General: normal to inspection and no edema Psych: Mental Status: mental status grossly normal Affect: normal affect Objective Data Vital Signs Vital Signs: Vital Signs - 24 hr 03/06/20 14:00 03/06/20 20:00 03/07/20 06:00 Temperature 37.1 C 36.6 C 36.3 C L Pulse Rate 66 82 62 Respiratory Rate 18 20 18 Blood Pressure 140/78 140/86 132/78 Pulse Oximetry 96 96 94 Intake/Output Intake/Output: Intake & Output 03/04/20 03/05/20 03/06/20 03/07/20 23:59 23:59 23:59 23:59 Intake Total 3100 4745 1200 Output Total 0 2
--- NOTE | 2020-03-07 11:04 | PM.PNGS ---
Progress Note: A&P Assessment and Plan (1) Ileus, unspecified: Onset Date: ~03/04/20 Code(s): K56.7 - Ileus, unspecified Status: Acute Assessment and Plan: X-ray studies are pointing toward in gastroenteritis or ileus. He seems to be improving. Will allow the patient to try to advance to full liquids today. Since his abdominal films show improvement today will also check with his nurse after lunch and if he is doing well he can probably be discharged. We will have dietitian talk with him about a low residue diet which is what I would want him on for 1 week once he leaves. (2) H/O: HTN (hypertension): Code(s): Z86.79 - Personal history of other diseases of the circulatory system Status: Chronic (3) Hyperlipidemia: Qualifiers: Hyperlipidemia type: unspecified Qualified Code(s): E78.5 - Hyperlipidemia, unspecified Code(s): E78.5 - Hyperlipidemia, unspecified Status: Chronic (4) Abnormal glucose: Code(s): R73.09 - Other abnormal glucose Status: Acute Additional Plan If doing well on full liquids after lunch may be discharged with plan to stick to a low fiber diet for 1 week. Recommend following up with his PCP if no continuing pain or side effects If patient has further abdominal pain he can call our office. Subjective Subjective Date/Time Seen: 03/07/20 11:04 Patient seen lying in bed this morning just after his breakfast. He tolerated some broth and juice with coffee. He stopped having diarrhea about noon yesterday. He has been tolerating clear liquid diet without any abdominal pain since then. I informed him of the result of today's abdominal x-ray. Review of Systems Review of Systems: All systems reviewed & are unremarkable except as noted in HPI and below Constitutional: Constitutional: Reports as per HPI, Reports no additional constitutional complaints, Denies body ache(s), Denies chills, Denies fatigue, Denies fever(s), Denies headache(s) and Reports increased appetite Eyes: Eyes: Reports no additional eye complaints, Denies change in vision, Denies diplopia and Denies loss of vision ENT: Reports Normal hearing present, Denies dizziness, Denies headache(s) and Reports other (Mucous Membranes moist.) Cardiovascular: Cardiovascular: Reports no additional cardiovascular complaints, Denies chest pain, Denies syncope, Denies leg edema, Denies lightheadedness, Denies radiating jaw, neck or arm pain and Denies dyspnea Respiratory: Respiratory: Reports no additional respiratory complaints, Denies cough, Denies pain on inspiration, Denies dyspnea and Denies wheezing Gastrointestinal: Gastrointestinal: Reports as per HPI, Reports no additional gastrointestinal complaints, Denies abdominal pain, Denies melena, Denies hematochezia, Denies constipation, Denies vomiting and Denies hematemesis Comments: Patient relates he had diarrhea until noon yesterday and that slowed down but he is passing more flatus in general today than yesterday. Genitourinary: Genitourinary: Reports no additional male genitourinary complaints, Denies hematuria and Denies dysuria Musculoskeletal: Musculoskeletal: Reports no additional musculoskeletal complaints, Denies deformity, Denies joint swelling, Denies radiating pain into limb, Denies tingling and Reports other (No calf swelling or edema) Integumentary/Breasts: Skin/Breast: Reports system reviewed and no additional complaints, except as docu, Denies pruritus, Denies lesions, Denies erythema, Denies wounds and Denies jaundice Neurologic: Reports system reviewed and no additional complaints, except as documented, Reports Normal hearing present, Denies confusion, Denies dizziness, Denies syncope, Denies headache(s), Denies loss of vision, Denies tingling and Denies tremor(s) Psychiatric: Psychiatric: Denies anxiety, Denies confusion and Denies depression Endocrine: Endocrine: Denies fatigue Allergic/Immunologic: Allergic/Immunologi
--- NOTE | 2020-03-07 13:14 | PCDIET ---
Nutrition consult received. Low fiber diet education provided. See Nutritional Teaching for additional details.
[2020-03-07 14:00] VITALS: BP 125/75; PULSE 65; RESP 16; TEMP 36.6; O2SAT 99
--- NOTE | 2020-03-07 14:33 | PM.DS ---
DS: Admitting Diagnosis Admitting Diagnosis Admitting Diagnosis: Small-bowel obstruction History of hypertension DS: Discharge Diagnosis Discharge Diagnosis (1) Small bowel obstruction: Code(s): K56.609 - Unspecified intestinal obstruction, unspecified as to partial versus complete obstruction Status: Ruled-out Assessment and Plan: Patient has been placed in observation status. NPO overnight. Continue IV hydration. Pain control as needed. Antiemetics as needed. General surgery has been consulted by ER provider. Evaluate for small-bowel follow-through in a.m. Continue general surgery recommendations. (2) Abnormal glucose: Code(s): R73.09 - Other abnormal glucose Status: Acute Assessment and Plan: Rule out undiagnosed diabetes mellitus. Check hemoglobin A1c in a.m. (3) Leukocytosis: Qualifiers: Leukocytosis type: unspecified Qualified Code(s): D72.829 - Elevated white blood cell count, unspecified Code(s): D72.829 - Elevated white blood cell count, unspecified Status: Acute Assessment and Plan: Likely secondary to bowel obstruction. Monitor CBCD. (4) H/O: HTN (hypertension): Code(s): Z86.79 - Personal history of other diseases of the circulatory system Status: Chronic Assessment and Plan: Monitor blood pressure. P.r.n. IV hydralazine with parameters as needed. (5) Hyperlipidemia: Qualifiers: Hyperlipidemia type: unspecified Qualified Code(s): E78.5 - Hyperlipidemia, unspecified Code(s): E78.5 - Hyperlipidemia, unspecified Status: Chronic Assessment and Plan: Resume home statin therapy when possible. DS: Summary Hospital Course Hospital Course: 64 years old male patient with history of hypertension was admitted with complaints of abdominal pain. X-ray of the abdomen shows a possible small bowel obstruction. Surgery was consulted who advised conservative management with IV fluid and pain medication. Repeat x-ray shows much improvement in the small bowel obstruction. Patient was started on clear liquid diet. Patient tolerated clear liquid diet and was increased to as tolerated diet. No complication ingesting the hospital. Electrolytes and CBC remained normal during the stay in the hospital. Today patient is feeling better so patient was discharged home stable condition. Diet as tolerated activity as tolerated. Follow-up with surgery and follow-up with primary care outpatient next 62. Time spent discussing smoking cessation with patient: 3 to 10 minutes Status at Discharge Cognitive/behavioral status at discharge: Stable Functional status at discharge: independent ambulation Overall status at discharge: patient is back to baseline Time Spent with Patient Time attestation: Total time spent providing and/or coordinating discharge services: Time spent: Less than 30 minutes Specific discharge activities: As tolerated Exam Const: General: cooperative, no acute distress, alert and awake Nutritional Appearance: well nourished Orientation/consciousness: patient oriented x3 HENMT: Head: normal to inspection General nose exam: Normal external nose present Face and sinus: normal facial exam Mouth: Yes Normal oral and palatal mucosa present and Yes oropharynx normal Eyes: Pupils: Equal, round and reactive pupils present EOM: EOMs intact bilaterally Neck: Neck: supple and no JVD Thyroid: thyroid normal Lymphatic: lymphadenopathy not noted Resp: Effort & Inspection: normal respiratory effort Auscultation: clear to auscultation bilaterally Cardio: Rate: regular rate Rhythm: regular rhythm Heart sounds: no murmurs GI: Inspection: normal to inspection and non-distended Auscultation: Hypoactive bowel sounds present Rectal Exam: deferred Skin: General skin exam: normal color and no rashes or lesions noted Neuro: General: patient oriented x3 Cranial nerves: Yes CN's II-XII inta
== END 2020-03-07 15:45 | disposition home or self-care (01) | DRG 390 ==
LOC: ANHED 22:54 → ANH2MED 03-05 14:32
PROVIDERS: Emergency Medicine; Surgery; Admitting Provider Family Medicine; Emergency Provider Emergency Medicine; Visit Provider Internal Medicine
DX: K56.609 Unspecified intestinal obstruction, unspecified as to partial versus complete obstruction (principal); R73.09 Other abnormal glucose; D72.829 Elevated white blood cell count, unspecified; E78.5 Hyperlipidemia, unspecified; Z86.79 Personal history of other diseases of the circulatory system; Z79.899 Other long term (current) drug therapy
CPT/HCPCS: 36415; 74019; 74176; 74240; 74248; 80048; 80053; 81001; 83605; 83690; 85025; 85027; 93005; 96374; 99285; A9270; J0131; J1885; J2270; J2405; J2765; J7120

== ENCOUNTER 2020-11-14 16:09 | Emergency (ER) | payer OTHER, SELFPAY ==
[2020-11-14] VITALS (9 sets, daily range): BP systolic 145–180; BP diastolic 78–105; PULSE 56–67; RESP 18–20; TEMP 36.4–36.9; O2SAT 93–99
--- NOTE | ~2020-11-14 | XR_ITS ---
EXAMINATION: XR shoulder LT min 2V DATE: 11/14/2020 16:25 INDICATION: Left shoulder pain. Fall. TECHNIQUE: 4 views of left shoulder were obtained. COMPARISON: Left shoulder radiograph 10/16/2016 FINDINGS: There is anterior dislocation of humeral head with respect to glenoid. There is an impactio n fracture deformity of posterolateral aspect of humeral head (Hill-Sachs fracture deformity). There is mild osteoarthritis of glenohumeral joint and severe osteoarthritis of acromioclavicular joint. IMPRESSION: 1. Anterior left shoulder dislocation. 2. Hill-Sachs fracture deformity. 3. Polyarticular osteoarthritis. Reviewed, dictated and finalized at location A.
--- NOTE | ~2020-11-14 | XR_ITS ---
EXAMINATION: XR shoulder LT min 2V DATE: 11/14/2020 18:29 INDICATION: Left shoulder dislocation status post reduction. TECHNIQUE: 2 views of left shoulder were obtained. COMPARISON: Left shoulder radiographs at 4:18 PM FINDINGS: Bone alignment is normal. No visible fracture. There is mild osteoarthritis of glenohumeral joint and severe osteoarthritis of acromioclavicular joint. IMPRESSION: 1. Normal alignment at glenohumeral joint. 2. Polyarticular osteoarthritis. Reviewed, dictated and finalized at location A.
[2020-11-14] MEDS: fentaNYL CITRATE INJ (*CRX) 100 MCG/2 ML VIAL 50 MCG IV PUSH (16:59)
--- NOTE | 2020-11-14 17:17 | ED.UPPEXIN ---
HPI - Extremity Injury (Upper) General Chief Complaint: Extremity Injury, Upper <Antonia Lora PA-C - Last Filed: 11/14/20 18:53> Stated Complaint: left shoulder injury <RAFAELA Bey Last Filed: 11/14/20 18:53> Time Seen by Provider: 11/14/20 16:39 <Antonia Lora PA-C - Last Filed: 11/14/20 18:53> Source: patient <RAFAELA Bey Last Filed: 11/14/20 18:53> Mode of arrival: ambulatory <RAFAELA Bey Last Filed: 11/14/20 18:53> Limitations: no limitations <RAFAELA Bey Last Filed: 11/14/20 18:53> History of Present Illness HPI narrative: This is a 65 year old male that presents to the ER for left shoulder injury sustained just prior to arrival. Reports he was reaching for something and fell onto his shoulder. Reports he felt it pop out. Reports history of dislocation to this injury in the past. Denies numbness. <Antonia Lora PA-C - Last Filed: 11/14/20 18:53> Related Data Home Medications: Home Medications Medication Instructions Recorded Confirmed amlodipine 5 mg PO DAILY 03/04/20 11/14/20 rosuvastatin 10 mg PO DAILY 03/04/20 11/14/20 <RAFAELA Bey Last Filed: 11/14/20 18:53> Allergies/Adverse Reactions: Allergies Allergy/AdvReac Type Severity Reaction Status Date / Time No Known Allergies Allergy Mild Verified 11/14/20 16:34 <Antonia Lora PA-C - Last Filed: 11/14/20 18:53> Review of Systems Review of Systems: CONSTITUTIONAL: Denies fever MUSCULOSKELETAL: Reports joint pain, and myalgia. NEUROLOGIC: Denies numbness, or weakness. <RAFAELA Bey Last Filed: 11/14/20 18:53> All systems reviewed & are unremarkable except as noted in HPI and below <RAFAELA Bey Last Filed: 11/14/20 18:53> PMFSH Past Medical History Medical History: Medical History Borderline hypertension H/O: HTN (hypertension) Hyperlipidemia Kidney stones <Antonia Lora PA-C - Last Filed: 11/14/20 18:53> Surgical History Surgical History: Surgical History H/O shoulder surgery <Antonia Lora PA-C - Last Filed: 11/14/20 18:53> Family History Family History: Family History Mother Cerebrovascular accident Diabetes mellitus <Antonia Lora PA-C - Last Filed: 11/14/20 18:53> Social History Social History: Social History Smoking status: Never smoker Alcohol intake: current Drinks per week: 12 Alcohol use details: Patient states he drinks 4 to 5 days a week and approximately 4-5 beers a day Substance use: never Additional living arrangements comments: Lives with his and two teenage children. Gender identity (if verbalized by the patient): Male Spiritual care concerns: No <Antonia Lora PA-C - Last Filed: 11/14/20 18:53> Exam Narrative: GENERAL: Well-appearing, well-nourished, and in no acute distress. HEAD: Normocephalic, atraumatic. EYES: EOMI. CHEST: Clear to auscultation. No respiratory distress. No wheezes rales or rhonchi HEART: Regular rate and rhythm. No murmur heard. Normal peripheral pulses. EXTREMITIES: Normal range of motion, except decreased active ROM in the left shoulder with obvious deformity. No edema. Normal radial pulses. Normal sensation SKIN: Warm, dry, no rash. NEURO: No focal deficits. Alert and oriented x3. PSYCH: Normal mood and affect <Antonia Lora PA-C - Last Filed: 11/14/20 18:53> Course LIEN SEARCHER/PA Physician Supervision For this patient encounter, I reviewed the LIEN SEARCHER or PA documentation, treatment plan, and medical decision making; and I had xjje-fn-hlkh time with this GENERAL: Well-appearing, well-nourished, and in no acute distress. HEAD: Normocephalic, atraumatic. ENT: Mucous memb
--- NOTE | 2020-11-14 18:15 | PC.NURSE ---
70 mg propofol given ivp per dr arce
== END 2020-11-14 19:05 | disposition home or self-care (01) ==
PROVIDERS: Emergency Provider Emergency Medicine
DX: S43.015A Anterior dislocation of left humerus, initial encounter (principal); E78.5 Hyperlipidemia, unspecified; Z87.442 Personal history of urinary calculi; I10 Essential (primary) hypertension; M19.012 Primary osteoarthritis, left shoulder; W19.XXXA Unspecified fall, initial encounter
CPT/HCPCS: 23650; 73030; 96374; 99285; J2704; J3010

== ENCOUNTER 2020-11-21 19:56 | Emergency (ER) | payer OTHER, SELFPAY ==
[2020-11-21] VITALS (24 sets, daily range): BP systolic 146–195; BP diastolic 81–118; PULSE 60–96; RESP 10–23; TEMP 36.1–36.3; O2SAT 93–100
--- NOTE | ~2020-11-21 | XR_ITS ---
EXAMINATION: XR shoulder LT min 2V EXAM DATE: 11/21/2020 22:19 INDICATION: post reduction . TECHNIQUE: Frontal, Y projections of the left shoulder. Comparison is made to prior examination from 11/21/2020. FINDINGS: Previously seen left humeral dislocation has been reduced, humeral head is in expected pos ition. No acute fracture is identified. There is moderate glenohumeral joint, moderate to severe acro mioclavicular joint primary osteoarthritis. The soft tissue is unremarkable. IMPRESSION: Status post left humeral reduction. Osteoarthritis. Reviewed, dictated and finalized at location A.
--- NOTE | ~2020-11-21 | XR_ITS ---
XR shoulder LT min 2V 11/21/2020 20:42 Indication: Left shoulder dislocation Procedure: 3 views left shoulder Comparison: 11/14/2020 Findings: There is a left anterior shoulder dislocation. There are degenerative changes of the glenoi d process. No definite acute fracture is seen. There is osteoarthritis of the acromioclavicular joint . Impression: 1: Left anterior shoulder dislocation. Reviewed, dictated and finalized at location A. Impression: 1: Left anterior shoulder dislocation.
[2020-11-21] MEDS: HYDROmorphone HCL INJ (*CRX) 1 MG/ML SYR IV PUSH (20:50)
[2020-11-21] MEDS: SODIUM CHLORIDE 0.9% IV 1,000 ML 999 ML IV CONT (20:53)
--- NOTE | 2020-11-21 21:41 | ED.GENADULT ---
HPI - General Adult General Chief complaint: Extremity Injury, Upper Stated complaint: Left shoulder dislocated Time Seen by Provider: 11/21/20 20:26 History of Present Illness HPI narrative: Is a 65-year-old gentleman who presents the emergency department with chief complaint of left shoulder dislocation. The patient reports that he has had a recent shoulder dislocation of the left side was reduced and is seeing orthopedic surgery. Patient states that he was laying in bed rolled over and his shoulder popped out. Patient reports pain in the shoulder but denies any numbness or tingling. Related Data Home Medications Medication Instructions Recorded Confirmed amlodipine 5 mg PO DAILY 03/04/20 11/18/20 rosuvastatin 10 mg PO DAILY 03/04/20 11/18/20 Allergies Allergy/AdvReac Type Severity Reaction Status Date / Time No Known Allergies Allergy Mild Verified 11/21/20 20:06 Review of Systems Review of Systems: A 10 system review of systems was completed on the patient and is negative except for what is stated in the HPI. Nursing and ancillary documentation was reviewed. [facility] Past Medical History Medical History Borderline hypertension H/O: HTN (hypertension) Hyperlipidemia Kidney stones Surgical History Surgical History H/O shoulder surgery Family History Family History Mother Cerebrovascular accident Diabetes mellitus Social History Social History Smoking status: Never smoker Alcohol intake: current Drinks per week: 12 Alcohol use details: Patient states he drinks 4 to 5 days a week and approximately 4-5 beers a day Substance use: never Additional living arrangements comments: Lives with his and two teenage children. Gender identity (if verbalized by the patient): Male Spiritual care concerns: No Exam Narrative: GENERAL: Well-appearing, well-nourished, and in no acute distress. HEAD: Normocephalic, atraumatic. EYES: PERRLA and EOMI. ENT: Nares clear, no rhinorrhea or epistaxis. Mucous membranes moist. NECK: Supple. CHEST: Clear to auscultation. No respiratory distress. HEART: Regular rate and rhythm. No murmur heard. Normal peripheral pulses. ABDOMEN: Soft, nontender, nondistended, normal active bowel sounds. EXTREMITIES: Reduced range of motion of the left shoulder there is a obvious anterior shoulder dislocation. No edema. SKIN: Warm, dry, no rash. NEURO: No focal deficits. Alert and oriented x3. PSYCH: Normal mood and affect. Course Vital Signs Vital signs: Vital Signs Temperature 36.1 C L 11/21/20 20:01 Pulse Rate 86 11/21/20 20:01 Respiratory Rate 16 11/21/20 20:01 Blood Pressure 146/90 H 11/21/20 20:01 Pulse Oximetry 99 11/21/20 20:01 Temperature 36.3 C L 11/21/20 21:57 Pulse Rate 60 11/21/20 22:17 Respiratory Rate 17 11/21/20 22:17 Blood Pressure 169/81 H 11/21/20 22:17 Pulse Oximetry 99 11/21/20 22:17 Procedures Orthopedic Joint Reduction Joint #1: Orthopedic Joint Reduction Date: 11/21/20 Orthopedic Joint Reduction Time: 21:42 Time Out Performed: Yes Side: left Joint Reduction Location: shoulder Analgesia: procedural sedation Pre-Procedure Neuro Vascular Exam: normal Shoulder Technique Used (if applicable): Amaya Post-reduction neuro exam: intact Post-reduction vascular: intact Post Reduction X-Ray Obtained: Yes Post Reduction X-Ray Results: reduced Splint Applied: Yes Patient Tolerated Procedure: well Procedural Sedation Procedural Sedation #1: Procedural Sedation Date: 11/21/20 Procedural Sedation Time: 21:43 Presedation Evaluation: See documented physical exam
--- NOTE | 2020-11-21 21:51 | PC.NURSE ---
10 mg etomidate given for sedation dislocation of left shoulder given by dr beard at 2137. consent obtained prior to medication being given and vital signs stable.
[2020-11-21] MEDS: fentaNYL CITRATE INJ (*CRX) 100 MCG/2 ML VIAL 50 MCG IV PUSH (21:59)
--- NOTE | 2020-11-21 23:15 | PC.NURSE ---
Pt threw up on the sidewalk while waiting for his car. I asked pt 2x if hewanted to come back into the ER. He states he did not want to come back in . Pt left with in car.
--- NOTE | 2021-01-06 11:13 | PC.NURSE ---
LATE ENTRY This note is being entered to document information to the patient's record. The following information was incorrectly entered on [11/21/2020], by [Ange Castaneda RN]. Verified site of injury was Left shoulder not rights as initially entered in assessment.
== END 2020-11-21 23:27 | disposition home or self-care (01) ==
PROVIDERS: Emergency Provider Emergency Medicine
DX: M24.412 Recurrent dislocation, left shoulder (principal); I10 Essential (primary) hypertension; E78.5 Hyperlipidemia, unspecified; Z87.442 Personal history of urinary calculi; M19.012 Primary osteoarthritis, left shoulder
CPT/HCPCS: 23650; 73030; 96374; 96375; 99285; J1170; J3010; J7030

== ENCOUNTER → 2020-12-21 14:56 | Outpatient (CLI) | payer OTHER, SELFPAY ==
--- NOTE | ~2020-12-21 | MR_ITS ---
EXAMINATION: MR shoulder LT wo con DATE: 12/21/2020 16:12 INDICATION: Recurrent dislocation, left shoulder. TECHNIQUE: Magnetic resonance imaging (MRI) of the left shoulder was performed without intravenous co ntrast. Sequences included axial PD-weighted FS FSE, coronal oblique PD-weighted FS FSE and T2-weight ed FS FSE, and sagittal oblique T2-weighted FS FSE and T1-weighted FSE. COMPARISON: Left shoulder radiographs 11/21/2020 FINDINGS: Coracoacromial arch: The acromion undersurface is curved in morphology (type II). There is severe acromioclavicular joint osteoarthritis including inferiorly directed osteophytes. There is mild subacromial/subdeltoid bursit is. Rotator cuff: There is an articular-sided, jltw-qmua-xhuscktsj tear of supraspinatus and infraspinatus tendons zaina uring 15 mm anterior to posterior by 3.1 cm proximal to distal. Teres minor tendon is normal. There i s moderate subscapularis tendinopathy with small interstitial tear. There is no asymmetric fatty atro phy of the rotator cuff muscle bellies. Biceps tendon and glenoid labrum: Biceps tendon is in bicipital groove. There is a partial tear of proximal biceps tendon. There is wid espread tearing of the glenoid labrum including the superior and anteroinferior aspects of the labrum . Fluid: There is a small glenohumeral joint effusion. Bones/cartilage: There is shallow partial-thickness cartilage loss of glenoid and humeral head. IMPRESSION: 1. Prhp-sfph-gtnmhgios rotator cuff tear. 2. Mild glenohumeral joint chondrosis. Extensive tearing of the glenoid labrum. 3. Severe acromioclavicular joint osteoarthritis. 4. Partial tear of intra-articular biceps tendon. 5. Small glenohumeral joint effusion. 6. Mild subacromial/subdeltoid bursitis. Reviewed, dictated and finalized at location A. IMPRESSION: 1. Pwvi-gcze-cfgvayqsc rotator cuff tear. 2. Mild glenohumeral joint chondrosis. Extensive tearing of the glenoid labrum. 3. Severe acromioclavicular joint osteoarthritis. 4. Partial tear of intra-articular biceps tendon. 5. Small glenohumeral joint effusion. 6. Mild subacromial/subdeltoid bursitis.
== END ==
PROVIDERS: Visit Provider Orthopaedic Surgery
DX: M24.412 Recurrent dislocation, left shoulder (principal); M19.012 Primary osteoarthritis, left shoulder; M75.52 Bursitis of left shoulder; M25.412 Effusion, left shoulder; S46.212A Strain of muscle, fascia and tendon of other parts of biceps, left arm, initial encounter; X58.XXXA Exposure to other specified factors, initial encounter; M75.101 Unspecified rotator cuff tear or rupture of right shoulder, not specified as traumatic
CPT/HCPCS: 73221

== ENCOUNTER 2021-04-14 08:08 | Outpatient (CLI) | payer OTHER, SELFPAY ==
--- NOTE | 2021-04-14 10:47 | ECG_ITS ---
Measurements Intervals [place] Rate: 57 P: 8 OH: 187 QRS: -28 QRSD: 101 T: 29 QT: 444 QTc: 434 Interpretive Statements SINUS BRADYCARDIA INCOMPLETE RIGHT BUNDLE BRANCH BLOCK LOW QRS VOLTAGE IN PRECORDIAL LEADS BORDERLINE R WAVE PROGRESSION, ANTERIOR LEADS BORDERLINE ECG Electronically Signed On 04-14-2021 11:47:57 REFRIGERATION ENGINEER by Sacha Jones D.O.
== END 2021-04-14 08:09 | disposition home or self-care (01) ==
PROVIDERS: PCP Internal Medicine Rheumatology; Visit Provider Orthopaedic Surgery
DX: Z01.810 Encounter for preprocedural cardiovascular examination (principal); R00.1 Bradycardia, unspecified; E78.5 Hyperlipidemia, unspecified; Z86.79 Personal history of other diseases of the circulatory system; I45.10 Unspecified right bundle-branch block
CPT/HCPCS: 93005

== ENCOUNTER 2021-04-16 01:46 | Day surgery (SDC) | payer OTHER, SELFPAY ==
[2021-04-09 14:07] VITALS: BMI 27.6
--- NOTE | 2021-04-09 14:19 | PC.NURSE ---
Report to the Outpatient Waiting Room, entrance under the green pavilion located off [facility], at time 8:30 on date 04/16/21. OR Time: 10:30. - You will be asked a series of questions to screen for COVID 19 for your protection. - A mask is required within the hospital. - No visitors are allowed at this time. Preoperative COVID Testing Requirements: No COVID Test needed if: (proof is required; if not received patient will have Rapid Test prior to entry) - Patient has received COVID Vaccine at least 14 days prior to procedure date or - Patient has positive COVID test result within last 90 days of surgery date. COVID Test needed if above criteria is not met Patients may have clear liquids (water, carbonated beverages, clear teas, apple juice) until 3 hours prior to surgery (7:30) with a maximum of 20 ounces. - No food from midnight until time of surgery Take the following medications with a SIP of water the morning of surgery: AMLODIPINE Medications to discontinue per physician: IBUPROFEN Date to take last dose: 04/09/21 (PER DR. SMART) Please no make-up, nail kyrgyz, hairspray, perfume, deodorant, or body powder the day of surgery. No jewelry (including any body piercings) or valuables the day of surgery, leave them at home. Please take a shower or bath the night before, or the morning of, surgery with an antibacterial soap. Wear comfortable, loose fitting clothing. - Jewelry must be removed prior to entering the operating room. Rings and piercings that are not removed may be cut off. - The hospital will not accept responsibility for valuables. - Please leave all valuables, including medications, at home the day of surgery. If you are going home after surgery, a licensed driver recruiter must drive you home. - NO public transportation without another adult. - We recommend that an adult stay with you for 24 hours following discharge. - We also recommend that you do not drive, make important decision, drink alcoholic beverages, or take any drugs that were not prescribed by your health care provider for at least 24 hours after your discharge time. Follow any additional instructions given to you from your surgeon. Telephone instructions given to GUY WHITE and asked if any additional questions and then verbalized understanding. Patient advised to call surgeon office or pre surgery nurse liaison [phone] if any additional questions.
--- NOTE | 2021-04-15 17:11 | P.PNAN_ITS ---
Anes - Eval Pre Procedure Procedure: Operation Date: 04/16/21 10:30 Proposed Procedures p Arthroscopic Rotator Cuff Tear, Biceps Tenodesis, Labral Debridement Versus Repair Left Shoulder, Subacromial Decompression, Proceed As Indicated - Rupert Hernandez MD Date/Time: 04/15/21 17:11 Pre Op Diagnosis: recurrent dislocation of left shoulder, Patient Data Age: 65 Gender: M Height: 1.79 m Weight: 88.45 kg Allergies Allergy/AdvReac Type Severity Reaction Status Date / Time No Known Allergies Allergy Mild Verified 04/09/21 14:06 Home Medications Medication Instructions Recorded Confirmed Type amlodipine 5 mg PO DAILY 03/04/20 04/09/21 History rosuvastatin 10 mg PO DAILY 03/04/20 04/09/21 History ibuprofen 400 mg PO DAILY 04/09/21 04/09/21 History Patient hx anesthesia problems: none Family hx anesthesia problems: none Results Review: All pre-operative results and documents have been reviewed as part of the pre-operative evaluation. 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 Gender identity (if verbalized by the patient): Male Spiritual care concerns: No Exam Day of Procedure 04/15/21 17:11 Patient weight: overweight Risks: VR 57 SINUS BRADYCARDIA INCOMPLETE RIGHT BUNDLE BRANCH BLOCK LOW QRS VOLTAGE IN PRECORDIAL LEADS BORDERLINE R WAVE PROGRESSION, ANTERIOR LEADS BORDERLINE ECG
[2021-04-16] VITALS (7 sets, daily range): BP systolic 127–148; BP diastolic 73–91; PULSE 52–71; RESP 14–18; TEMP 36.1; O2SAT 93–98
--- NOTE | 2021-04-16 07:10 | WPDANESEFPP ---
Anes - Eval Final PreProcedure Day of Procedure 04/16/21 07:10 Patient weight: overweight Heart: regular rate and rhythm Lungs: clear to auscultation and normal air movement Airway: Mallampati scale class II Neurological: alert and oriented Last oral intake: >/= 8 hours ASA classification: III Emergent: no Anesthetic plan: proceed Anesthesia type and monitoring: general LMA Results Review: All pre-operative results and documents have been reviewed as part of the pre-operative evaluation. Informed Consent: The patient's anesthetic plan and its attendant risks and benefits were discussed with the patient/family/POA. Questions were solicited and answers provided to the satisfaction of the patient/family/POA.
[2021-04-16] MEDS: LACTATED RINGERS 1,000 ML 30 ML IV CONT (09:05)
[2021-04-16] MEDS: ACETAMINOPHEN 500 MG TABLET 1000 MG PO (09:06)
[2021-04-16] MEDS: KETOROLAC 15 MG/ML VIAL (*BKC) IV PUSH (09:07)
--- NOTE | 2021-04-16 10:45 | WPDANESPNB ---
Anes - Peripheral Nerve Block Date/Time: 04/16/21 10:45 I have discussed with the patient/family/POA the placement of a peripheral nerve block for post-operative pain management, including associated risks, benefits, complications, and side effects. Alternative methods of post-operative analgesia were detailed. Questions were solicited and answers provided to the satisfaction of the patient/family/POA. Time-Out: A pre-procedural Time-Out was completed immediately before starting the procedure and confirmed: Patient Identification, Site, Procedure, Patient Position and the Availability of Requisite Equipment. Clinical Indications: Acute post-operative pain management requested by the operative surgeon. Nerve Block Insertion Note Anes-nerve block: supraclavicular left Patient position: supine Skin prep: chlorhexidine Needle: 22 gauge, stimulating, insulated echogenic needle. Needle length: 80 mm Technique: ultrasound (in plane) Injectate: bupivacaine 0.5% with epi 5 mcg/ml (20cc) Observations: tolerated well Complications: none Procedure start time:: 1100 Procedure end time:: 1105
--- NOTE | 2021-04-16 10:46 | WPDHPUPDATE1 ---
History and Physical Update Update Date/Time: 04/16/21 10:46 Surgical procedure may include subacromial decompression. History and Physical has been reviewed, including an updated exam of the patient. There are NO changes in the patient's condition. Risks, benefits, and alternatives have been discussed and questions answered. Patient agrees to proceed with procedure.
[2021-04-16] MEDS: ceFAZolin 2 GM/D5W 50 ML 2 GM/50 ML BAG IVPB (11:10)
--- NOTE | 2021-04-16 16:53 | W.PM.PROC2 ---
Procedure Note - Detailed Date of Procedure 04/16/21 Pre-op Diagnosis 1. Recurrent dislocation of left shoulder 2. Partial tear left rotator cuff 3. Degenerative SLAP tear and biceps tendinosis 4. Bankart lesion. Post-op Diagnosis other ( 1. Rotator cuff tear including the subscapularis and supraspinatus. 2. Biceps tearing and subluxation) Procedure Performed Left shoulder 1. Arthroscopic rotator cuff repair including supraspinatus and subscapularis 2. Arthroscopic biceps tenodesis 3. Arthroscopic subacromial decompression. Surgeon Rupert Hernandez MD Supervisor Process Testing Nicky Donohue PA-C Anesthesia general and regional Description of Procedure Patient presented with recurrent popping and instability. He had several dislocation episodes. More recently, subtle subluxation only. Preoperative antibiotics were given. General anesthetic was administered. Carefully placed in the beach chair position. Shoulder felt slightly loose but not grossly unstable. No ability to translate more than 2 quadrants. The shoulder was prepped and draped in the usual sterile fashion. Standard posterior and anterior arthroscopic portals were established. Inflow obtained with the saline pump. There was a mild synovitis. A Andrew complex noted anteriorly. The labrum itself did not appear significantly damaged torn, or unstable. The capsule however was fairly patulous. The humeral head drifted distally and occasionally anteriorly. A drive-through sign was possible. The biceps tendon was tearing and subluxed anteriorly into a split tear of the upper subscapularis. It was felt that this was the primary determinant of his sense of instability and popping. Was elected to perform biceps tenodesis and repair of the upper subscapularis with a suture anchor. Loop and hitch suture placed on the biceps and horizontal mattress placed in the subscapularis. The SwiveLock anchor was used. The repair was very robust. The anterior supraspinatus appeared to be quite attenuated. There appeared to have been an old injury with only the most superficial fibers of bursa and tendon attached. This was a deed chronic but fairly secure. Unfortunately the main functional capabilities of the tendon were absent. This was tagged and identified at the bursal side. The soft spot was rather remarkable and it was easily debrided. The tear was fairly small but on the underside it was quite wide and deep. The tear itself was not very mobile. It was elected to perform a repair with 2 medial anchors in a double row equivalent fashion. For horizontal mattress sutures were placed and tied. Tendon was looking quite good at this point. One limb from each of the pairs was then brought to each of the anchors laterally and secured with a SwiveLock. The repair was quite carvajal with good sikh and compression of the footprint. The acromion was mildly frayed and a modest acromioplasty was indicated with partial release of the coracoacromial ligament. The arthroscopic instruments were removed. The wounds were closed with interrupted 4-0 Monocryl suture followed by Steri-Strips. A sterile bulky dressing was applied. The patient was placed in a sling. Arthrex SwiveLock anchor knotless used for the subscapularis and biceps. To triple loaded all suture anchors placed at the medial row. Two SwiveLock for the lateral row. Physician nurse assistant, Nicky Grewal PA-C, required for surgery; including patient positioning, draping, arthroscopic camera operation, maintaining instrument position, suture retrieval, wound closure, and dressing and sling placement. Estimated Blood Loss 10 Packing No Pathology none sent Complications No immediate complications Condition stable Disposition PACU
== END 2021-04-16 17:10 | disposition home or self-care (01) ==
PROVIDERS: PCP Internal Medicine Rheumatology; Visit Provider Orthopaedic Surgery
PROC: (CPT 29805; principal; 2021-04-16 10:30)
DX: S46.012A Strain of muscle(s) and tendon(s) of the rotator cuff of left shoulder, initial encounter (principal); S46.112A Strain of muscle, fascia and tendon of long head of biceps, left arm, initial encounter; M24.412 Recurrent dislocation, left shoulder; M75.22 Bicipital tendinitis, left shoulder; M65.812 Other synovitis and tenosynovitis, left shoulder; G89.18 Other acute postprocedural pain; X50.0XXA Overexertion from strenuous movement or load, initial encounter; I10 Essential (primary) hypertension; E78.5 Hyperlipidemia, unspecified
CPT/HCPCS: 29827; 29828; 29826; 64415; 93005; A4565; A9270; J0690; J1100; J1885; J2250; J2405; J2704; J3010; J7120

== ENCOUNTER → 2022-07-13 09:36 | Outpatient (CLI) | payer OTHER, SELFPAY ==
--- NOTE | ~2022-07-13 | MR_ITS ---
EXAMINATION: MR knee RT wo con DATE: 07/13/2022 10:14 INDICATION: Internal derangement of the right knee with medial sided right knee pain TECHNIQUE: Magnetic resonance imaging (MRI) of the right knee was performed without intravenous contr ast. Sequences included coronal PD-weighted FSE, coronal PD-weighted FS FSE, sagittal T2-weighted FS E, sagittal PD-weighted FS FSE and axial PD weighted fat saturated FSE. COMPARISON: None. FINDINGS: Medial compartment: Longitudinal horizontal tear of the medial meniscus extends to the inferior articular surface at the posterior horn and posterior body, crossing the free edge at the mid meniscal body and contacting the superior articular surface in the more anterior body. Focal partial-thickness chondral ulceration an d deep fissuring without degenerative subchondral changes along the lateral third of the anterior to central weightbearing medial femoral condyle. Additional small region of deep chondral fissuring at t he central weightbearing medial femoral condyle. Normal cartilage along the medial tibial plateau. Lateral compartment: Longitudinal horizontal tear extending to the intra-articular surface of the posterior horn and body of the lateral meniscus. Small region of shallow chondral fissuring at the anterior weightbearing lat eral femoral condyle and juxtaposed central aspect of the lateral tibial plateau. Patellofemoral compartment: Patellar cartilage is normal. Deep chondral ulceration with cortical irregularity and mild subarticul ar cystlike and edema-like signal change at the mid to inferior aspect of the lateral trochlea. Deep chondral fissuring without degenerative subchondral changes at the inferior aspect of the medial troc hlea. Ligaments and tendons: Anterior and posterior cruciate ligaments are normal. The medial collateral ligament and fibular kiersten ateral ligament complex are normal. Prominent anterior patellar enthesophytes with moderate patellar and distal quadriceps tendinopathy. There are couple small enthesopathic ossicles within the proximal patellar tendon. The visualized medial and lateral hamstring tendons as well as the iliotibial band are normal. Fluid: Small joint effusion at the medial and lateral gutters of the suprapatellar pouch. Very small Schultz's cyst. There is additional small amount of incompletely loculated appearing fluid in the soft tissues lateral to the lateral femoral condyle and periphery of the lateral meniscus but deep to the iliotib ial band potentially related to bursitis and associated iliotibial band friction syndrome, extravasat ed fluid in the joint space where a partially ruptured ganglion versus para meniscal cyst. No loose o steochondral bodies identified. Osseous/other: Bone alignment is normal. No fracture or pathologic marrow replacing process. There is edema at the l ateral aspect of the infrapatellar fat pad. IMPRESSION: 1. Longitudinal horizontal tears of the medial and lateral menisci. 2. 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 3. Moderate patellar and distal quadriceps tendinopathy with associated enthesophytes and enthesopath ic ossification. 4. Small knee joint effusion and small Schultz's cyst. 5. Incomplete loculated fluid collection positioned between the iliotibial band and the lateral femor al condyle which could be related to bursitis and iliotibial band friction syndrome,, extravasated fl uid from the joint effusion or partially ruptured ganglion cyst versus para meniscal cyst. Reviewed, dictated and finalized at location B. IMPRESSION: 1. Longitudinal horizontal tears of the medial and lateral menisci. 2. Mild tricompartmental osteoarthritis with high-grade chondromalacia at the l ateral trochlea. 3. Moderate pa
== END ==
PROVIDERS: PCP Internal Medicine Rheumatology; Visit Provider Physician Assistant Surgical
DX: M17.11 Unilateral primary osteoarthritis, right knee (principal); S83.281A Other tear of lateral meniscus, current injury, right knee, initial encounter; S83.241A Other tear of medial meniscus, current injury, right knee, initial encounter; X58.XXXA Exposure to other specified factors, initial encounter; M25.461 Effusion, right knee; M71.21 Synovial cyst of popliteal space [Baker], right knee
CPT/HCPCS: 73721

== ENCOUNTER 2022-08-02 12:20 | Outpatient (CLI) | payer OTHER, SELFPAY ==
--- NOTE | 2022-08-02 12:30 | ECG_ITS ---
Measurements Intervals [place] Rate: 70 P: 42 MS: 189 QRS: -32 QRSD: 104 T: 23 QT: 402 QTc: 437 Interpretive Statements SINUS RHYTHM LEFT AXIS DEVIATION POSSIBLE LEFT ATRIAL ENLARGEMENT DELAYED PRECORDIAL R/S TRANSITION BORDERLINE ECG COMPARED TO ECG 04/14/2021 11:24:53 SINUS RHYTHM NOW PRESENT LEFT-AXIS DEVIATION NOW PRESENT Electronically Signed On 08-02-2022 12:47:45 CDT by Sacha Jones D.O.
== END 2022-08-02 12:21 | disposition home or self-care (01) ==
LOC: ANHSURGERY 12:27
PROVIDERS: PCP Internal Medicine Rheumatology; Visit Provider Orthopaedic Surgery
DX: Z86.79 Personal history of other diseases of the circulatory system (principal); Z01.818 Encounter for other preprocedural examination
CPT/HCPCS: 93005

== ENCOUNTER 2022-08-11 02:34 | Day surgery (SDC) | payer OTHER, MEDICARE, SELFPAY ==
--- NOTE | 2022-08-01 12:02 | PC.NURSE ---
PRE-OP INSTRUCTIONS, PLEASE READ CAREFULLY Report to the Outpatient Waiting Room, entrance under the green pavilion located off [facility], at time _0830_ on date _08/11/22_. Planned Procedure Time: _1030_. Time changes happen often and if your time is changed the preop area will call you the afternoon before. - You and your visitor will be asked to self-screen and do not enter if you have any COVID symptoms. - A mask is optional within the hospital at this time. Patients may have clear liquids (water, carbonated beverages, clear teas, apple juice) until 3 hours prior to surgery (0830 AM) with a maximum of 20 ounces. - No food from midnight until time of surgery Take the following medications with a SIP of water the morning of surgery: _AMLODIPINE, & TYLENOL IF NEEDED_ DO NOT STOP ANY OF YOUR OTHER PRESCRIPTION MEDICATIONS PRIOR TO SURGERY ?EXCEPT THE FOLLOWING Medications to discontinue per DR. SMART - _IBUPROFEN 7 DAYS PRIOR TO SURGERY, Date to take last dose 08/03/22_ Please no make-up, nail beninese, hairspray, perfume, deodorant, or body powder the day of surgery. No jewelry (including any body piercings) or valuables the day of surgery, leave them at home. Please take a shower or bath the night before, or the morning of, surgery with an antibacterial soap. Wear comfortable, loose fitting clothing. Children are encouraged to wear pajamas. - Jewelry must be removed prior to entering the operating room. Rings and piercings that are not removed may be cut off. - The hospital will not accept responsibility for valuables. - Please leave all valuables, including medications, at home the day of surgery. If you are going home after surgery, a licensed transit driver must drive you home. - NO public transportation without another adult if you receive anesthesia. - We recommend that an adult stay with you for 24 hours following discharge. - We also recommend that you do not drive, make important decision, drink alcoholic beverages, or take any drugs that were not prescribed by your health care provider for at least 24 hours after your discharge time. For Pediatric surgeries, we recommend two adults accompany the child home. Follow any additional instructions given to you from your surgeon. If you or anyone in your household have experienced Covid symptoms in the past week, please notify your surgeon or the nurse liaison at the phone number below for possible testing. Telephone instructions given to _PATIENT__and asked if any additional questions and then verbalized understanding. Patient advised to call surgeon office or pre surgery nurse liaison [phone] if any additional questions.
[2022-08-01 12:06] VITALS: BMI 28.3
[2022-08-11] VITALS (8 sets, daily range): BP systolic 117–151; BP diastolic 71–94; PULSE 52–70; RESP 12–16; TEMP 36–36.2; O2SAT 98–100
--- NOTE | 2022-08-11 07:17 | WPDHPUPDATE1 ---
History and Physical Update Update Date/Time: 08/11/22 07:17 History and Physical has been reviewed, including an updated exam of the patient. There are NO changes in the patient's condition. Risks, benefits, and alternatives have been discussed and questions answered. Patient agrees to proceed with procedure.
[2022-08-11] MEDS: LACTATED RINGERS 1,000 ML 30 ML IV CONT (09:00)
[2022-08-11] MEDS: KETOROLAC 15 MG/ML VIAL (*BKC) IV PUSH (09:30)
[2022-08-11] MEDS: ACETAMINOPHEN 500 MG TABLET 1000 MG PO (09:30)
--- NOTE | 2022-08-11 10:24 | WPDANESEPPF ---
Anes - Initial Pre Proc Eval Procedure: Operation Date: 08/11/22 10:30 Proposed Procedures p Right Knee Arthroscopy, Partial, Lateral and Medial Meniscectomy - Rupert Hernandez MD Date/Time: 08/11/22 10:24 Surgeon: Rupert Hernandez MD Pre Op Diagnosis: rt knee medial and lateral meniscus tear Patient Data Age: 67 Gender: M Height: 1.79 m Weight: 90.8 kg Last Vital Signs Temp 36.2 C L 08/11/22 09:00 Pulse 70 08/11/22 09:00 Resp 16 08/11/22 09:00 BP 148/77 H 08/11/22 09:00 Pulse Ox 100 08/11/22 09:00 O2 Del Method Room Air 08/11/22 09:00 Allergies Allergy/AdvReac Type Severity Reaction Status Date / Time No Known Allergies Allergy Mild Verified 08/11/22 10:02 Home Medications Medication Instructions Recorded Confirmed Type amlodipine 5 mg tablet 5 mg PO DAILY 03/04/20 08/01/22 History rosuvastatin 10 mg tablet 10 mg PO DAILY 03/04/20 08/01/22 History ibuprofen 400 mg tablet 400 mg PO DAILY PRN Pain 04/09/21 08/01/22 History acetaminophen 500 mg tablet 1,000 mg PO Q6H PRN Pain 08/01/22 08/01/22 History Patient hx anesthesia problems: none Family hx anesthesia problems: none Results Review: All pre-operative results and documents have been reviewed as part of the pre-operative evaluation. 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 Borderline hypertension Degenerative superior labral lbmlmjfu-ub-wpbvpmojb (SLAP) tear of shoulder H/O ETOH abuse H/O: HTN (hypertension) Hyperlipidemia Kidney stones Surgical History Surgical History H/O shoulder surgery right shoulder History of arthroscopic surgery of shoulder left rotator cuff repair Family History Family History Mother Cerebrovascular accident Diabetes mellitus Social History Social History Smoking status: Never smoker Second hand tobacco smoke exposure: No Alcohol intake: current Drinks per week: 28 Alcohol use details: (RUM) Substance use: never Substance use type: does not use Lack of Transportation: No Lack of Food: Never True Current Housing: I Have Housing Concerned About Future Housing: No Difficulty Paying Gas/Electric Bills: No Difficulty Paying for Meds: No Currently Unemployed: No Education: High School Diploma/GED Difficulty w/ Childcare or Family Care: No Living arrangements: with family Additional living arrangements comments: Lives with his and two teenage children. Occupation/Education: occupation Gender identity (if verbalized by the patient): Male Spiritual care concerns: No Anes - Eval Final PreProcedure Day of Procedure 08/11/22 10:24 Patient weight: overweight Heart: regular rate and rhythm Lungs: clear to auscultation Airway: Mallampati scale class II Neurological: alert and oriented Last oral intake: >/= 8 hours ASA classification: III Emergent: no Anesthetic plan: proceed Anesthesia type and monitoring: general LMA and standard monitoring Results Review: All pre-operative results and documents have been reviewed as part of the pre-operative evaluation. Informed Consent: The patient's anesthetic plan and its attendant risks and benefits were discussed with the patient/family/POA. Questions were solicited and answers provided to the satisfaction of the patient/family/POA.
[2022-08-11] MEDS: ceFAZolin 2 GM/D5W 50 ML 2 GM/50 ML BAG IVPB (10:44)
[2022-08-11] MEDS: BUPIVACAINE/EPINEPHRINE 0.5% 50 ML VIAL 20 ML INFILTRATE (11:09)
--- NOTE | 2022-08-11 12:24 | SUR.PHASEI ---
1220- notified MD Hernandez for discharge orders
--- NOTE | 2022-08-11 12:32 | W.PM.PROC2 ---
Procedure Note - Detailed Date of Procedure 08/11/22 Pre-op Diagnosis rt knee medial and lateral meniscus tear Post-op Diagnosis Other (1. Right knee medial and lateral meniscus tears 2. Right knee lateral ganglion cyst ) Procedure Performed Right knee 1. Arthroscopic partial medial and lateral meniscectomy. 2. Open decompression of lateral knee joint ganglion cyst. Surgeon Rupert Hernandez MD Anesthesia General Findings The medial meniscus had a complex tear pattern with significant posterior horn horizontal cleavage tear. This was debrided to a stable rim. Grade 2/Iii chondromalacia on the medial femoral condyle. Patellofemoral joint normal. Lateral compartment minimal grade 1 chondromalacia on the femur. Moderate tearing of the inner margin of the lateral meniscus. No obvious pathway to the lateral knee joint ganglion. The lateral cyst was quite large and tense with knee flexion. The mucinous fluid was too thick to aspirate and a small incision was created approximately 4 mm at the level of the cyst. Mucinous material was expressed. The cystic defect was cauterized. Description of Procedure The patient was identified and the surgical site confirmed and signed in the preoperative holding area. Antibiotics were started per protocol. She was brought to the operative room and transferred to the OR table. A general anesthetic was administered. Supine position with the operative lower extremity position in the leg davila after placement of a well padded tourniquet. The leg support was lowered and the contralateral limb was supported with a soft bolster. The knee was prepped and draped in the usual sterile fashion. A time-out was performed. The portal sites were marked and infiltrated with 0.5% Marcaine 20 mL. The limb was exsanguinated and the tourniquet inflated to 300 mL Hg. Standard inferolateral and inferomedial portals were established. Inflow was obtained with the saline pump. The camera was introduced. Diagnostic inspection of the joint was accomplished. The menisci were debrided with the arthroscopic shaver and punches until stable. The radiofrequency probe was also used for further d?bridement. Lateral cyst was incised with the 11 blade. More than 1 cc of mucinous fluid was expressed. The defect was cauterized with the radiofrequency probe and closed. The arthroscopic instruments were removed. The tourniquet released and wounds closed with subcutaneous 4-0 Monocryl absorbable suture. Steri strips and a sterile dressing were applied. A light elastic wrap was placed. The patient was extubated and brought to the recovery room in stable condition. Estimated Blood Loss -5.0 Drains No Complications No immediate complications Condition Stable Disposition PACU [facility] Billing Surgery - Charge Forward: Surgery Billing
== END 2022-08-11 13:20 | disposition home or self-care (01) ==
PROVIDERS: PCP Internal Medicine Rheumatology; Visit Provider Orthopaedic Surgery
PROC: (CPT 29870; principal; 2022-08-11 10:30)
DX: M23.321 Other meniscus derangements, posterior horn of medial meniscus, right knee (principal); M23.361 Other meniscus derangements, other lateral meniscus, right knee; M67.461 Ganglion, right knee; M94.261 Chondromalacia, right knee; I10 Essential (primary) hypertension; E78.5 Hyperlipidemia, unspecified
CPT/HCPCS: 29880; 27328; 93005; A9270; J0690; J1885; J2250; J2270; J7120

== ENCOUNTER 2024-05-09 18:25 | Emergency (ER) | payer OTHER, MEDICARE, SELFPAY ==
--- NOTE | 2024-05-09 18:26 | ED.URI ---
HPI - URI/Sore Throat General Chief Complaint: Upper Respiratory Infection Stated Complaint: 104 Fever Time Seen by Provider: 05/09/24 18:26 Source: patient Mode of arrival: ambulatory Limitations: no limitations History of Present Illness HPI Narrative: Willis is a 68-year-old male patient presenting to the clinic today with complaints of 104 degree F fever. He reports he has had body aches, fever, chills, headache, and chest congestion x3 days. No shortness of breath or chest pain. MD elicited complaint: fever Related Data Home Medications ?Medication ?Instructions ?Recorded ?Confirmed ?Last Taken ?Type amlodipine 5 mg tablet 5 mg PO DAILY 03/04/20 09/22/22 Unknown History rosuvastatin 10 mg tablet 10 mg PO DAILY 03/04/20 09/22/22 Unknown History Allergies Allergy/AdvReac Type Severity Reaction Status Date / Time No Known Allergies Allergy Mild Verified 05/09/24 18:38 Review of Systems Review of Systems: Pertinent positives per HPI. Patient denies any rash, headache, visual changes, dizziness, shortness of breath, chest pain, palpitations, nausea, vomiting, diarrhea, constipation, abdominal pain, or any urinary issues. [facility] Past Medical History Medical History Abnormal glucose Bankart lesion of left shoulder Biceps tendinosis of left shoulder Borderline hypertension Degenerative superior labral bkunpvvp-fh-bonrdivpx (SLAP) tear of shoulder H/O ETOH abuse H/O: HTN (hypertension) Hyperlipidemia Kidney stones Surgical History Surgical History H/O shoulder surgery right shoulder History of arthroscopic surgery of shoulder left rotator cuff repair Family History Family History Mother Cerebrovascular accident Diabetes mellitus Social History Social History Smoking status: Never smoker Second hand tobacco smoke exposure: No Alcohol intake: current Drinks per week: 28 Alcohol use details: (RUM) Substance use: never Substance use type: does not use Lack of Transportation: No Lack of Food: Never True Current Housing: I Have Housing Concerned About Future Housing: No Difficulty Paying Gas/Electric Bills: No Difficulty Paying for Meds: No Currently Unemployed: No Education: High School Diploma/GED Difficulty w/ Childcare or Family Care: No Living arrangements: with family Additional living arrangements comments: Lives with his and two teenage children. Occupation/Education: occupation Gender identity (if verbalized by the patient): Male Spiritual care concerns: No Comments At the time of my signature, I reviewed and agree with the nursing past medical, surgical, social, and family history. There is no relevant family history pertinent to the patient complaint. Exam Narrative: General: Well-developed, well nourished, in no apparent distress Head: Normocephalic, atraumatic Eyes: Pupils equally round and reactive to light bilaterally, EOM intact, sclera and conjunctive clear, no discharge, lids normal Ears: TMs intact and clear, ear canals clear, no drainage, grossly hearing normal. Nose: Nares patent, clear nasal discharge, no inflammation, no sinus tenderness. Mouth: Oral pharynx without lesions or masses, good dentition, MMM. Neck: Supple, trachea midline, no enlargement of anterior or posterior cervical nodes, no thyroid masses or goiter palpable. Cardio: Regular rate and rhythm, s1 and s2 normal, no murmur appreciated. Resp: Clear to auscultation bilaterally, no rhonchi, rales, wheezing or rubs Course Course Emergency Course: Portions of this record may have been created with voice recognition software. Level of Care: Express Care Visit Vital Signs Vital signs: Vital Signs Temperature 37.5 C 05/09/24 18:33 Pulse Rate 102 H 05/09/24 18:33 Respiratory Rate 18 05/09/24 18:33 Blood Pressure 140/85 05/09/24 18:33 Pulse Oximetry 97 05/09/24 18:33 Oxygen Delivery Room Air 05/09/24 18:33 Temperature 37.5 C 05/09/24 18:33 Pulse Rate 102 H 05/09/24 18:33 Respiratory Rate 18 05/09/24 18:33 Blood Pressure 140/85 05/09/24 18:33 Pulse Oximetry 97 05/09/24 18:33 Oxygen Delivery Room Air 05/09/24 18:33 Vital signs reviewed MDM - URI/Sore Throat MDM Narrative Medical decision making narrative: At the time of visit patient is resting comfortably on the exam table. Patient appears to be nontoxic. Labs: Influenza testing was positive for influenza A. COVID testing was negative Plans: Patient has influenza A. He is out of the window for Tamiflu. Supportive measures were discussed with the patient and they voiced understanding discharge instructions and agrees to treatment plan. Return precautions reviewed Differential Diagnosis Differential diagnosis: Likely upper respiratory infection, otitis media, sinusitis, viral infection, bronchitis, influenza, pharyngitis and other (COVID) Discharge Plan Discharge Clinical Impression: Influenza A Patient Disposition: Home, Self-Care Condition: Stable Instructions: Antibiotic Form, Influenza (ED) Additional Instructions: Influenza A testing is positive in the clinic today. COVID testing is negative May take DayQuil/NyQuil for cold/flu symptoms-this medication has Tylenol in it May take Mucinex for the cough Increase fluids and stay well hydrated Tylenol/motrin for pain/fever Flonase and OTC antihistamines as directed Vicks vapor rub to open sinuses Sinus rinses for congestion Cepacol spray, cough drops, throat lozenges, warm tea with honey/lemon, gargle salt water to soothe throat BRAT diet for diarrhea Clear liquids x 24 hours then advance as tolerated for nausea/vomiting Go to the ED if you develop a worsening in your condition- high fever not controlled by Tylenol or Motrin, dehydration, weakness, lethargy, shortness of breath, or chest pain. Follow up with your PCP in 3-5 days if symptoms persist. Patient Language: St Helen[place] Prescriptions: No Action amlodipine 5 mg tablet 5 mg PO DAILY rosuvastatin 10 mg tablet 10 mg PO DAILY Follow-up/Referrals: Clemencia,Breonna Michel MD [Primary Care Provider] - Stand Alone Forms: Work/School Release IP Time of Disposition: 18:43 Quality NIHSS Nursing Documentation ED NIHSS nursing documentation: reviewed/agree
[2024-05-09 18:33] VITALS: BP 140/85; PULSE 102; RESP 18; TEMP 37.5; O2SAT 97
[2024-05-09 18:53] LABS: EDCOVIDSCREEN Negative (Negative); EDINFLUASCREEN Positive (Negative); EDINFLUBSCREEN Negative (Negative)
== END 2024-05-09 18:46 | disposition home or self-care (01) ==
PROVIDERS: Emergency Provider Nurse Practitioner Family; PCP Internal Medicine Rheumatology
DX: J10.1 Influenza due to other identified influenza virus with other respiratory manifestations (principal); Z20.822 Contact with and (suspected) exposure to COVID-19; I10 Essential (primary) hypertension; E78.5 Hyperlipidemia, unspecified
CPT/HCPCS: 87426; 87804; 99212; G0463